=== PATIENT | female | born 1985 | race Caucasian/White ===

== ENCOUNTER 2020-01-09 12:53 | Emergency (ER) | payer SELFPAY ==
[2020-01-09 15:18] VITALS: BP 109/79; PULSE 75; RESP 20; TEMP 37.3; O2SAT 100; BMI 34.0
--- NOTE | 2020-01-09 15:20 | ED_ITS ---
HPI - General Adult General Chief complaint: Abdominal Pain Stated complaint: fever cough abd pain Time Seen by Provider: 01/09/20 15:15 Source: patient Mode of arrival: ambulatory Limitations: no limitations History of Present Illness HPI narrative: 34 years old female with chief complaint of abdominal pain. She states that a few days ago he started to have URI symptoms malaise, weakness , fever. She denies any fever, chills, diarrhea Onset (ago): day(s) (3) Location: abdomen Radiation: non-radiation Severity: moderate Pain Consistency: constant Relieving factors: none Exacerbating factors: none Related Data Previous Rx's Medication Instructions Recorded naproxen [Naprosyn] 500 mg PO BID #10 tab 01/09/20 Allergies Allergy/AdvReac Type Severity Reaction Status Date / Time acetaminophen [From PERCOCET] Allergy Unknown RASH Unverified 12/11/19 16:50 oxycodone [From PERCOCET] Allergy Unknown RASH Unverified 12/11/19 16:50 Review of Systems Review of Systems: Yes all other systems are reviewed and are negative Cardiovascular: Cardiovascular: Reports no additional cardiovascular complaints Respiratory: Respiratory: Reports no additional respiratory complaints and Reports cough Gastrointestinal: Gastrointestinal: Denies hematochezia and Denies change in bowel habits Neurologic: Reports system reviewed and no additional complaints, except as documented PMFSH Past Medical History Surgical History Hx of appendectomy Social History Social History Smoking Status: Never smoker Use of substances other than those prescribed or required for medical reasons: Yes Substance Use Type: Marijuana Substance Use Frequency: Daily Advance Directives: No Advance Directives Information Provided: Yes Physical Exam Vital Signs: Vital Signs: Vital Signs Temp Pulse Resp BP Pulse Ox 01/09/20 15:18 99.2 F 75 20 109/79 100 Body Mass Index 34.0 Const: Other: she appear well she is not toxic General: cooperative, healthy appearing, comfortable, no acute distress, well developed, alert, awake and Physically active HENMT: Head: Yes normal to inspection Eyes: General: appearance normal, both eyes and all related structures Neck: Neck: Yes normal visual inspection and Yes full ROM Chest: Chest palpation & inspection: normal inspection of the chest Resp: Effort & Inspection: normal respiratory effort Cardio: Jugular venous distension: no JVD Rate: regular rate GI: Inspection: Yes normal to inspection Percussion: Yes normal to percussion Auscultation: normal bowel sounds Skin: Rashes: no rashes Course Reevaluation(s) Reevaluation #1: AT THIS POINT SHE IS FEELING BETTER, THE WHITE COUNT IS NORMAL AT THE CHEMISTRIES NORMAL, SHE HAD HISTORY OF APPENDECTOMY. I DO NOT THINK A CT SCAN OF THE ABDOMEN AND PELVIS IS NECESSARY SHE IS RELATIVELY YOUNG AND WILL AVOID THE RADIATION, SOUND MORE LIKE A VIRAL ILLNESS STARTED WITH THE URI SYMPTOMS AND COUGH, WE WILL TEST FOR CORONAVIRUS WILL DISCHARGE HOME. PATIENT IS COMFORTABLE WITH THE PLAN.SHE WILL RETURN IF WORSE Time: 16:49 Medical Decision Making Lab Data Result diagrams: 01/09/20 15:42 01/09/20 15:42 Labs: Lab Results 01/09/20 01/09/20 01/09/20 Range/Units 15:42 15:42 15:42 WBC 5.3 (4.8-10.8) X10*3/uL RBC 4.49 (4.20-5.50) X10*6/uL Hgb 13.6 (12.0-16.0) g/dl Hct 41.2 (37-47) % MCV 91.8 (80-98) fL MCH 30.3 (27.0-33.0) pg MCHC 33.0 (31.0-35.0) g/dl RDW 12.6 (11.0-16.0) % Plt Count 331 (160-400) X10*3/uL MPV 8.6 L (9.4-12.3) fL Immature Gran % (Auto) 0.2 (0.0-0.4) % Neut % (Auto) 53.1 (45-73) % Lymph % (Auto) 31.2 (20-40) % [place] % (Auto) 11.7 H (2-11) % Eos % (Auto) 3.2 (0-4) % Baso % (Auto) 0.6 (0-2) % Lymph # (Auto) 1.7 (1.2-4.9) X10*3/uL [place] # (Auto) 0.6 (0.1-1.2) X10*3/uL Eos # (Auto) 0.2 (0.0-0.4) X10*3/uL Baso # (Auto) 0.0 (0.0-0.2) X10*3/uL Abs Immat Gran (auto) 0.01 (0.00-0.03) X10*3/uL Absolute Neuts (auto) 2.8 (2.0-8.3) X10*3/uL Absolute Nucleated RBC 0.000 (0.0-0.012) X10*3/uL Nucleated RBC % (auto) 0.0 (0.0-0.2) /100WBC Sodium 135 Cancelled (135-145) mmol/L Potassium 4.4 Cancelled (3.3-5.1) mmol/l Chloride 106 Cancelled (96-108) mmol/L Carbon Dioxide 25 Cancelled (22-29) mmol/L Anion Gap 8 L Cancelled (12-20) BUN 9 Cancelled (9-16) mg/dL Creatinine 0.77 Cancelled (0.5-1.4) mg/dL Estim Creat Clear Calc 101.5 Cancelled Estimated GFR > 60 Cancelled Random Glucose 77 Cancelled (60-115) mg/dL Calcium 8.8 Cancelled (8.4-10.2) mg/dL Total Bilirubin 0.3 Cancelled (0.0-1.0) mg/dL AST 26 Cancelled (5-31) U/L ALT 16 Cancelled (0-31) U/L Alkaline Phosphatase 50 Cancelled (39-117) U/L Total Protein 6.5 Cancelled (6.5-8.0) g/dL Albumin 3.8 Cancelled (3.5-5.0) g/dL Beta HCG, Quant < 2 mIU/mL Discharge Plan Discharge Clinical Impression: Viral illness Abdominal pain Qualifiers: Abdominal location: generalized Qualified Code(s): R10.84 - Generalized abdominal pain Patient Disposition: Home, Self-Care Instructions: Viral Syndrome (ED) Prescriptions: New naproxen [Naprosyn] 500 mg tablet 500 mg PO BID Qty: 10 RF: 0 Stand Alone Forms: Work/School Release Interventions: ED Discharge Assessment Last Done: 01/09/20 17:05 Discharge Date/Time: 01/09/20 17:12
--- NOTE | 2020-01-09 15:35 | PC.NURSE ---
pt alert and oriented, skin pwd, respirations even and unlabored, pt states that on Sunday, was having fever at home 102, not feeling right, on sun started with lower abd pain/n/v, abd soft but tender
[2020-01-09 15:49] LABS: MANUAL DIFF FLAG NO
[2020-01-09 15:52] LABS: Basophils Percent Auto 0.6 % (0-2); Eosinophils Absolute Auto 0.2 X10*3/uL (0.0-0.4); Eosinophils Percent Auto 3.2 % (0-4); Hematocrit 41.2 % (37-47); Hemoglobin 13.6 g/dl (12.0-16.0); Imm Gran Abs Auto 0.01 X10*3/uL (0.00-0.03); Imm Gran Pct Auto 0.2 % (0.0-0.4); Lymphocytes Absolute Auto 1.7 X10*3/uL (1.2-4.9); Lymphocytes Percent Auto 31.2 % (20-40); Mean Corpuscular Hemoglobin 30.3 pg (27.0-33.0); Mean Corpuscular Volume 91.8 fL (80-98); Mean Platelet Volume 8.6 fL (9.4-12.3); Monocytes Absolute Auto 0.6 X10*3/uL (0.1-1.2); Monocytes Percent Auto 11.7 % (2-11); Neutrophils Absolute Auto 2.8 X10*3/uL (2.0-8.3); Neutrophils Percent Auto 53.1 % (45-73); Platelet Count 331 X10*3/uL (160-400); Red Blood Count 4.49 X10*6/uL (4.20-5.50); Red Cell Distribution Width 12.6 % (11.0-16.0); White Blood Count 5.3 X10*3/uL (4.8-10.8)
[2020-01-09 16:19] LABS: HCG Quantitative < 2 mIU/mL
[2020-01-09 16:36] LABS: Alanine Aminotransferase 16 U/L (0-31); Albumin Level 3.8 g/dL (3.5-5.0); Alkaline Phosphatase 50 U/L (39-117); Anion Gap 8 (12-20); Aspartate Amino Transferase 26 U/L (5-31); Bilirubin Total 0.3 mg/dL (0.0-1.0); Blood Urea Nitrogen 9 mg/dL (9-16); Calcium 8.8 mg/dL (8.4-10.2); Carbon Dioxide 25 mmol/L (22-29); Chloride 106 mmol/L (96-108); Creatinine Clr Calc Pharmacy 101.5; Estimated Glomerular Filt Rate > 60; Glucose Random 77 mg/dL (60-115); Potassium 4.4 mmol/l (3.3-5.1); Sodium 135 mmol/L (135-145); Total Protein 6.5 g/dL (6.5-8.0)
[2020-01-09] MEDS: Ketorolac Tromethamine 15 MG/ML VIAL IVPUSH (16:51)
== END 2020-01-09 17:12 | disposition home or self-care (01) ==
PROVIDERS: Emergency Provider Emergency Medicine
DX: B34.9 Viral infection, unspecified (principal); R50.9 Fever, unspecified; Z20.828 Contact with and (suspected) exposure to other viral communicable diseases
CPT/HCPCS: 36415; 80053; 84702; 85025; 87635; 96374; 99284; J1885

== ENCOUNTER 2020-02-01 16:10 | Emergency (ER) | payer SELFPAY ==
[2020-02-01 16:46] VITALS: BP 125/83; PULSE 79; RESP 16; TEMP 37; O2SAT 99; BMI 34.0
--- NOTE | 2020-02-01 16:47 | ED_ITS ---
HPI - General Adult General Chief complaint: General Medical Stated complaint: covid test (symptoms) Time Seen by Provider: 02/01/20 16:47 Source: patient Mode of arrival: ambulatory Limitations: no limitations History of Present Illness HPI narrative: States was at a family gathering 7 days ago and was called yesterday told that 1 of the attendees had COVID-19 and she has had symptoms of congestion since yesterday and concern for COVID-19 here to get COVID-19 test. She also reports some congestion with sore throat. No fever, chest pain or shortness of breath. Onset (ago): day(s) Treatments prior to arrival: none Related Data Previous Rx's Medication Instructions Recorded naproxen [Naprosyn] 500 mg PO BID #10 tab 01/09/20 Allergies Allergy/AdvReac Type Severity Reaction Status Date / Time acetaminophen [From PERCOCET] Allergy Unknown RASH Unverified 12/11/19 16:50 oxycodone [From PERCOCET] Allergy Unknown RASH Unverified 12/11/19 16:50 Review of Systems Review of Systems: Constitutional: No Weight loss, No Fever, No Chills, No Night Sweats, No Fatigue, No Malaise ENT/Mouth: No Hearing loss, No Ear Pain, + Nasal Congestion, No Sinus Pain, No Hoarseness, + sore throat, No Rhinorrhea, No Swallowing Difficulty Eyes: No Eye Pain, No Swelling, No Redness, No Foreign Body, No Discharge, No Vision Changes Cardiovascular: No Chest Pain, No SOB, No Dyspnea on Exertion, No Orthopnea, No Edema, No Palpitations Respiratory: No Cough, No Sputum, No Wheezing, Gastrointestinal: No Nausea, No Vomiting, No Diarrhea, No Constipation, No abdominal Pain, No Hematochezia, No Melena Genitourinary: no irregular bleeding, No Dysuria, No Urinary Frequency, No Hematuria, No Urinary Incontinence, No Urgency, No Flank Pain, No Urinary Flow Changes, No Hesitancy Musculoskeletal: No joint pain, No Myalgias, No Joint Swelling Skin: No Skin Lesions, No rash Neuro: No Weakness, No Numbness, No Paresthesias, No Loss of Consciousness, No Dizziness, No Headache Psych: No Anxiety/Panic, No Depression Heme/Lymph: No Bruising, No Bleeding,No Lymphadenopathy Endocrine: No Polyuria, No Polydipsia, No Temperature Intolerance Yes all other systems are reviewed and are negative [facility] Past Medical History Attestation statement: The following information was validated with the patient. Surgical History Hx of appendectomy Social History Social History Smoking Status: Never smoker Smoked in Last 30 Days: No Use of substances other than those prescribed or required for medical reasons: No Substance Use Type: Marijuana Advance Directives: No Advance Directives Information Provided: Yes Physical Exam Vital Signs: Vital Signs: Last Vital Signs Temp 98.6 F 02/01/20 16:46 Pulse 79 02/01/20 16:46 Resp 16 02/01/20 16:46 BP 125/83 02/01/20 16:46 Pulse Ox 99 02/01/20 16:46 Body Mass Index 34.0 Reviewed Const: General: cooperative and healthy appearing; No acute distress or intoxicated appearing Nutritional Appearance: average body habitus Orientation/consciousness: patient oriented x3 HENMT: Head: Yes normal to inspection Ears: hearing grossly normal bilaterally Eyes: General: appearance normal, both eyes and all related structures Visual Farrar: normal visual farrar by confrontation Neck: Neck: Yes normal visual inspection and No tender Thyroid: Thyroid normal Chest: Chest palpation & inspection: normal inspection of the chest Resp: Effort & Inspection: normal respiratory effort Cardio: Jugular venous distension: no JVD Skin: General skin exam: no rashes or lesions noted Neuro: General: patient oriented x3 Extrem: General: Yes normal to inspection Medical Decision Making MDM Narrative Medical decision making narrative: Will do a rapid strep as well as COVID-19 will discharge home with couple caution return follow-up instructions. Discharge Plan Discharge Clinical Impression: Upper respiratory infection Qualifiers: URI type: unspecified viral URI Qualified Code(s): J06.9 - Acute upper respiratory infection, unspecified Patient Disposition: Home, Self-Care Instructions: Upper Respiratory Infection (ED) Additional Instructions: Based on your symptoms and history we have sent a COVID-19. Although your RESULT IS PENDING at this time. RESULTS should return within 72 hours. At this time you will be contacted with either NEGATIVE OR POSITIVE results. -Please wait until we contact you for your results. At this time you will be okay for discharge. Please plan for self quarantine for up to 14 days. Do not expose yourself to others. You may not go to work. If t esting does come back negative you may return to activities as long as you are no longer having any symptoms for at least 3 days. Please continue to follow cold instructions and wash your hands frequently. You may take Tylenol as directed on the bottle for pain or fever. Patient seen in the emergency department on 09/19/2019 and should be excused from work until negative test results AND until 72 hours without any symptoms AND at least 10 days have passed since symptoms first appeared or since last exposure to COVID-19 positive patient CDC Guidelines for home isolation: - Stay away from others - WEAR A MASK if you are sick AND STAY HOME - Cover your mouth and nose with a tissue when you cough or sneeze. Dispose of tissues in a lined trash can and wash your hands immediately with soap and water for at least 20 seconds. If soap and water are not available, clean hands with alcohol-based hand nurse practitioner manager that contains at least 60% alcohol. - Clean your hands often with soap and water for at least 20 seconds - Avoid touching your eyes, nose and mouth with unwashed hands - Do not share dishes, drinking glasses, cups, eating utensils, towels, or bedding with other people in your home. After using these items, wash them thoroughly with soap and water or put in the wood grainer. - Clean high-touch surfaces in your isolation area ( sick room and bathroom) every day; let a caregiver clean and disinfect high-touch surfaces in other areas of the home. Clean the area or item with soap and water or another detergent if it is dirty. Then, use a household disinfectant. - Limit contact with pets and animals: If you must care for a pet, wash your hands before and after interacting with them Prescriptions: No Action naproxen [Naprosyn] 500 mg tablet 500 mg PO BID Qty: 10 RF: 0 Referrals: Physician,Unknown [Primary Care Provider] - 1 week (phone visit ) Stand Alone Forms: Work/School Release
== END 2020-02-01 17:29 | disposition home or self-care (01) ==
PROVIDERS: Emergency Provider Emergency Medicine
DX: J06.9 Acute upper respiratory infection, unspecified (principal); R09.81 Nasal congestion; Z20.828 Contact with and (suspected) exposure to other viral communicable diseases
CPT/HCPCS: 87071; 87147; 87880; 99283; 99284; U0003

== ENCOUNTER 2020-04-07 10:46 | Outpatient (REF) | payer OTHER, SELFPAY | END 2020-04-07 10:47 | disposition home or self-care (01) | LOC: HO.LAB 10:46 | PROVIDERS: Visit Provider Internal Medicine | DX: Z20.822 Contact with and (suspected) exposure to COVID-19 (principal) | CPT/HCPCS: 36415; C9803; U0003 ==

== ENCOUNTER 2020-05-11 09:27 | Outpatient (REF) | payer MEDICAID, SELFPAY | END 2020-05-11 09:28 | disposition home or self-care (01) | LOC: HO.LAB 09:27 | PROVIDERS: Visit Provider Internal Medicine | DX: Z20.822 Contact with and (suspected) exposure to COVID-19 (principal) | CPT/HCPCS: 36415; C9803; U0003; U0005 ==

== ENCOUNTER 2020-05-18 18:34 | Emergency (ER) | payer MEDICAID, SELFPAY | END 2020-05-18 19:30 | disposition left against medical advice (07) | PROVIDERS: Emergency Provider Emergency Medicine | DX: U07.1 COVID-19 (principal); F12.90 Cannabis use, unspecified, uncomplicated ==

== ENCOUNTER 2020-05-20 08:15 | Emergency (ER) | payer MEDICAID, SELFPAY ==
--- NOTE | ~2020-05-20 | CT_ITS ---
EXAMINATION: CT ABDOMEN AND PELVIS WITH CONTRAST CLINICAL INFORMATION: Vomiting, elevated LFT and lipase. COMPARISON: CT abdomen and pelvis with IV contrast 07/23/2018 TECHNIQUE: Multidetector volumetric images were obtained from the superior aspect of the liver through the pubic symphysis following administration 85 mL of Omnipaque 350 intravenous contrast. Sagittal and coronal reformatted images were obtained on the technologist's workstation. Oral contrast: No This CT examination was performed using dose optimization techniques as appropriate, variously including the following: *Automated exposure control *Adjustment of mA and/or kV according to patient size (this includes techniques or standardized protocols for targeted exams where dose is matched to indication/reason for exam; i.e. extremities or head) *Use of iterative reconstruction technique DLP: 706 mGy-cm FINDINGS: LUNG BASES: The visualized lung bases are unremarkable. LIVER, GALLBLADDER, AND BILIARY TREE: Liver is normal in size and smooth in contour. Again, there is some fatty infiltration subcapsular anterior left lobe adjacent to the intersegmental fissure. There is no hepatic parenchymal lesion or intrahepatic ductal dilatation. The gallbladder is unremarkable with no evidence of radiopaque gallstones, gallbladder wall thickening, or obvious pericholecystic inflammatory changes. PANCREAS: Normal in size and contour, similar to prior study. No pancreatic ductal dilatation. No peripancreatic inflammatory changes. No retroperitoneal effusion. SPLEEN: Unremarkable. ADRENAL GLANDS: Unremarkable. KIDNEYS AND URETERS: The kidneys are normal in size, shape, and attenuation. No hydronephrosis, hydroureter, or calculi seen. No perinephric stranding. BLADDER: Unremarkable. GASTROINTESTINAL TRACT: There is borderline sliding hiatal hernia. There is no bowel obstruction or focal inflammatory changes in the bowel or mesentery. Surgical clips right lower quadrant are present and the appendix is not visualized, likely prior appendectomy. The terminal ileum and cecum are unremarkable. There is no ascites or fluid collection. ABDOMINAL WALL: Borderline fat-containing umbilical hernia, stable LYMPH NODES: No lymphadenopathy. VASCULAR: Unremarkable. PELVIC VISCERA: Unremarkable. OSSEOUS STRUCTURES: Unremarkable. CT/CT abdomen pelvis w con IMPRESSION: 1. No inflammatory changes in abdomen or pelvis. No bowel obstruction. 2. No cholelithiasis or ductal dilatation. Unremarkable pancreas. 3. No hydronephrosis, calculi, or perinephric stranding.
[2020-05-20 08:27] VITALS: BP 152/106; PULSE 82; RESP 16; TEMP 37.4; O2SAT 100; BMI 32.5
--- NOTE | 2020-05-20 08:34 | ED.NAVMDI ---
HPI - Nausea/Vomiting/Diarrhea General Chief complaint: Nausea/Vomiting/Diarrhea Stated complaint: pos covid last week,vomiting Time Seen by Provider: 05/20/20 08:23 Source: patient Mode of arrival: ambulatory Limitations: no limitations History of Present Illness HPI Narrative: 34 yo female dx with COVID on 05/11 since Sunday non stop emesis and nausea, feels weak cannot keep anything down MD elicited complaint: nausea and vomiting Pertinent past history: other (uses THC daily ) Onset (ago): day(s) (6 days) Description of vomiting: watery Associated nausea: Yes Associated abdominal pain: No Pain consistency: intermittent Severity: severe Exacerbating factors: eating Relieving factors: none Context: marijuana use Associated symptoms: loss of appetite, malaise, nausea/vomiting and weakness Related Data Previous Rx's Medication Instructions Recorded naproxen [Naprosyn] 500 mg PO BID #10 tab 01/09/20 amoxicillin-pot clavulanate 1 tab PO BID 10 Days #20 tab 02/05/20 [Augmentin] lorazepam [Ativan] 1 mg PO BEDTIME PRN #5 tab 05/20/20 ondansetron 4 mg PO Q8H PRN #20 tab 05/20/20 promethazine 25 mg IN Q6H PRN #12 ea 05/20/20 Allergies Allergy/AdvReac Type Severity Reaction Status Date / Time acetaminophen [From PERCOCET] Allergy Unknown RASH Unverified 12/11/19 16:50 oxycodone [From PERCOCET] Allergy Unknown RASH Unverified 12/11/19 16:50 Review of Systems Review of Systems: Constitutional : No Weight loss, No Fever, No Chills ENT/Mouth : No sore throat, No Rhinorrhea Eyes: No Swelling, No Redness Cardiovascular : No Chest Pain, No SOB, NoEdema Respiratory : No Cough, No Sputum, No Wheezing Gastrointestinal : Positive Nausea, Positive Vomiting, no Diarrhea, no abdominal Pain, No Hematochezia, No Melena Genitourinary : No Dysuria, No Urinary Frequency, No Hematuria, No Urgency Musculoskeletal : No joint pain, No Myalgias, No Joint Swelling Skin : No Skin Lesions, No rash Neuro : pos Weakness, No Numbness, No Dizziness, No Headache Psych : No Anxiety/Panic, No Depression Heme/Lymph: No Bruising, No Lymphadenopathy Endocrine : No Polyuria, No Polydipsia All other systems reviewed and are negative. Gastrointestinal: Gastrointestinal: Reports nausea PMFSH Past Medical History Attestation statement: The following information was validated with the patient. Medical History COVID-19 Surgical History Hx of appendectomy Social History Social History Alcohol intake: never Smoking Status: Never smoker Use of substances other than those prescribed or required for medical reasons: Yes Substance Use Type: Marijuana Substance Use Frequency: Daily Advance Directives: No Advance Directives Information Provided: No Physical Exam Vital Signs: Vital Signs: Last Vital Signs Temp 99.4 F 05/20/20 09:02 Pulse 68 05/20/20 14:55 Resp 16 05/20/20 14:55 BP 118/76 05/20/20 14:55 Pulse Ox 98 05/20/20 14:55 Body Mass Index 32.5 Appearance: Alert. Oriented X3. No acute distress. positive vomiting Eyes: Pupils equal, round and reactive to light. ENT: Pharynx dry MM Neck: Normal inspection. Neck supple. CVS: Normal heart rate and rhythm. Pulses normal. Respiratory: No respiratory distress. Breath sounds normal. Abdomen: Soft and nontender. Skin: Skin warm and dry. Normal skin color. Normal skin turgor. Extremities: No lower extremity edema. No calf ttp Neuro: Oriented X 3. No motor deficit. No sensory deficit. Course Course Course Narrative: CT scan for elevated LFTs and lipase failed PO challenge, IM haldol ordered does smoke daily THC has been asleep since haldol. able to tolerate PO post haldol she is not dehydrated, no acute findings on CT scan will send home with zofran and phenergan we discussed stopping THC MDM - Nausea/Vomiting/Diarrhea MDM Narrative Medical decision making narrative: 34 yo female here with vomiting/nausea since Sunday dx with COVID on 05/11 but did not have nausea then - she has no abdominal pain, denies at this time will obtain labs, hydrate gently, anti emetics, dispo per resulst and findings does smoke THC daily Lab Data Result diagrams: 05/20/20 08:40 05/20/20 08:40 Labs: Lab Results 05/20/20 05/20/20 05/20/20 Range/Units 08:40 08:40 08:40 WBC 5.6 (4.8-10.8) X10*3/uL RBC 5.24 (4.20-5.50) X10*6/uL Hgb 15.5 (12.0-16.0) g/dl Hct 45.5 (37-47) % MCV 86.8 (80-98) fL MCH 29.6 (27.0-33.0) pg MCHC 34.1 (31.0-35.0) g/dl RDW 12.1 (11.0-16.0) % Plt Count 463 H D (160-400) X10*3/uL MPV 8.6 L (9.4-12.3) fL Immature Gran % (Auto) 0.2 (0.0-0.4) % Neut % (Auto) 59.3 (45-73) % Lymph % (Auto) 25.0 (20-40) % [place] % (Auto) 15.3 H (2-11) % Eos % (Auto) 0.0 (0-4) % Baso % (Auto) 0.2 (0-2) % Lymph # (Auto) 1.4 (1.2-4.9) X10*3/uL [place] # (Auto) 0.9 (0.1-1.2) X10*3/uL Eos # (Auto) 0.0 (0.0-0.4) X10*3/uL Baso # (Auto) 0.0 (0.0-0.2) X10*3/uL Abs Immat Gran (auto) 0.01 (0.00-0.03) X10*3/uL Absolute Neuts (auto) 3.3 (2.0-8.3) X10*3/uL Absolute Nucleated RBC 0.000 (0.0-0.012) X10*3/uL Nucleated RBC % (auto) 0.0 (0.0-0.2) /100WBC Hold Blue Top SEE NOTE Sodium 142 (135-145) mmol/L Potassium 3.5 (3.3-5.1) mmol/L Chloride 102 (96-108) mmol/L Carbon Dioxide 27 (22-29) mmol/L Anion Gap 17 (12-20) BUN 14 D (9-16) mg/dL Creatinine 0.97 (0.5-1.4) mg/dL Estim Creat Clear Calc 78.7 Estimated GFR > 60 Random Glucose 139 H D (60-115) mg/dL Calcium 9.5 D (8.4-10.2) mg/dL Magnesium 2.6 (1.6-2.6) mg/dL Total Bilirubin 0.9 (0.0-1.0) mg/dL Direct Bilirubin 0.4 (0.0-0.5) mg/dL AST 74 H (5-31) U/L ALT 89 H (0-31) U/L Alkaline Phosphatase 51 (39-117) U/L Total Protein 7.8 (6.5-8.0) g/dL Albumin 4.6 D (3.5-5.0) g/dL Lipase 99 H (8-78) U/L Beta HCG, Quant < 2 mIU/mL Urine Color Urine Appearance Urine pH (5.0-8.0) Ur Specific [place] (1.005-1.025) Urine Protein (NEG-TRACE) MG/DL Urine Glucose (UA) (NEG) MG/DL Urine Ketones (NEG) MG/DL Urine Blood (NEG) Urine Nitrite (NEG) Ur Leukocyte Esterase (NEG) Urine Opiates Screen (Not Detect) Ur Barbiturates Screen (Not Detect) Ur Phencyclidine Scrn (Not Detect) Ur Amphetamines Screen (Not Detect) U Benzodiazepines Scrn (Not Detect) Urine Cocaine Screen (Not Detect) U Marijuana (THC) Screen (Not Detect) 05/20/20 05/20/20 Range/Units 11:42 11:42 WBC (4.8-10.8) X10*3/uL RBC (4.20-5.50) X10*6/uL Hgb (12.0-16.0) g/dl Hct (37-47) % MCV (80-98) fL MCH (27.0-33.0) pg MCHC (31.0-35.0) g/dl RDW (11.0-16.0) % Plt Count (160-400) X10*3/uL MPV (9.4-12.3) fL Immature Gran % (Auto) (0.0-0.4) % Neut % (Auto) (45-73) % Lymph % (Auto) (20-40) % [place] % (Auto) (2-11) % Eos % (Auto) (0-4) % Baso % (Auto) (0-2) % Lymph # (Auto) (1.2-4.9) X10*3/uL [place] # (Auto) (0.1-1.2) X10*3/uL Eos # (Auto) (0.0-0.4) X10*3/uL Baso # (Auto) (0.0-0.2) X10*3/uL Abs Immat Gran (auto) (0.00-0.03) X10*3/uL Absolute Neuts (auto) (2.0-8.3) X10*3/uL Absolute Nucleated RBC (0.0-0.012) X10*3/uL Nucleated RBC % (auto) (0.0-0.2) /100WBC Hold Blue Top Sodium (135-145) mmol/L Potassium (3.3-5.1) mmol/L Chloride (96-108) mmol/L Carbon Dioxide (22-29) mmol/L Anion Gap (12-20) BUN (9-16) mg/dL Creatinine (0.5-1.4) mg/dL Estim Creat Clear Calc Estimated GFR Random Glucose (60-115) mg/dL Calcium (8.4-10.2) mg/dL Magnesium (1.6-2.6) mg/dL Total Bilirubin (0.0-1.0) mg/dL Direct Bilirubin (0.0-0.5) mg/dL AST (5-31) U/L ALT (0-31) U/L Alkaline Phosphatase (39-117) U/L Total Protein (6.5-8.0) g/dL Albumin (3.5-5.0) g/dL Lipase (8-78) U/L Beta HCG, Quant mIU/mL Urine Color YELLOW Urine Appearance CLEAR Urine pH 7.5 (5.0-8.0) Ur Specific [place] <= 1.005 (1.005-1.025) Urine Protein NEG (NEG-TRACE) MG/DL Urine Glucose (UA) NEG (NEG) MG/DL Urine Ketones NEG (NEG) MG/DL Urine Blood NEG (NEG) Urine Nitrite NEG (NEG) Ur Leukocyte Esterase NEG (NEG) Urine Opiates Screen Not Detected (Not Detect) Ur Barbiturates Screen Not Detected (Not Detect) Ur Phencyclidine Scrn Not Detected (Not Detect) Ur Amphetamines Screen Not Detected (Not Detect) U Benzodiazepines Scrn Not Detected (Not Detect) Urine Cocaine Screen Not Detected (Not Detect) U Marijuana (THC) Screen POSITIVE H (Not Detect) Discharge Plan Discharge Clinical Impression: Vomiting Qualifiers: Vomiting type: unspecified Vomiting Intractability: non-intractable Nausea presence: with nausea Qualified Code(s): R11.2 - Nausea with vomiting, unspecified Patient Disposition: Home, Self-Care Instructions: Acute Nausea and Vomiting (ED) Additional Instructions: return to ED for any worsening symptoms or concerns stop smoking marijuana you had slight elevation in your liver function tests likely due to COVID and vomiting, repeat tests in 1 week Prescriptions: New promethazine 25 mg suppository 25 mg IN Q6H PRN (Reason: nausea and vomiting) Qty: 12 RF: 0 ondansetron 4 mg tablet,disintegrating 4 mg PO Q8H PRN (Reason: nausea and vomiting) Qty: 20 RF: 0 lorazepam [Ativan] 1 mg tablet 1 mg PO BEDTIME PRN (Reason: sleep) Qty: 5 RF: 0 No Action naproxen [Naprosyn] 500 mg tablet 500 mg PO BID Qty: 10 RF: 0 amoxicillin-pot clavulanate [Augmentin] 875-125 mg tablet 1 tab PO BID 10 Days Qty: 20 RF: 0 Stand Alone Forms: Work/School Release
[2020-05-20 08:46] LABS: MANUAL DIFF FLAG NO
[2020-05-20] MEDS: diphenhydrAMINE HCL 50 MG/ML VIAL 25 MG IVPUSH (08:47)
[2020-05-20] MEDS: Metoclopramide HCl 10 MG/2 ML VIAL 5 MG IVPUSH (08:47)
[2020-05-20] MEDS: 0.9 % Sodium Chloride 1,000 ML 999 ML IVCONT (08:47)
[2020-05-20 08:48] LABS: Basophils Percent Auto 0.2 % (0-2); Hematocrit 45.5 % (37-47); Hemoglobin 15.5 g/dl (12.0-16.0); Imm Gran Abs Auto 0.01 X10*3/uL (0.00-0.03); Imm Gran Pct Auto 0.2 % (0.0-0.4); Lymphocytes Absolute Auto 1.4 X10*3/uL (1.2-4.9); Mean Corpuscular HGB Conc 34.1 g/dl (31.0-35.0); Mean Corpuscular Hemoglobin 29.6 pg (27.0-33.0); Mean Corpuscular Volume 86.8 fL (80-98); Mean Platelet Volume 8.6 fL (9.4-12.3); Monocytes Absolute Auto 0.9 X10*3/uL (0.1-1.2); Monocytes Percent Auto 15.3 % (2-11); Neutrophils Absolute Auto 3.3 X10*3/uL (2.0-8.3); Neutrophils Percent Auto 59.3 % (45-73); Platelet Count 463 X10*3/uL (160-400); Red Blood Count 5.24 X10*6/uL (4.20-5.50); Red Cell Distribution Width 12.1 % (11.0-16.0); White Blood Count 5.6 X10*3/uL (4.8-10.8)
[2020-05-20 09:02] VITALS: BP 152/106; PULSE 82; RESP 16; TEMP 37.4; O2SAT 100
--- NOTE | 2020-05-20 09:06 | PC.NURSE ---
pt in for nausea and vomiting since Sunday. Md to bedside, IV established. Pt has been medicated for nausea and is resting quietly. She did vomit on arrival several times.
[2020-05-20 09:13] LABS: Alanine Aminotransferase 89 U/L (0-31); Albumin Level 4.6 g/dL (3.5-5.0); Alkaline Phosphatase 51 U/L (39-117); Anion Gap 17 (12-20); Aspartate Amino Transferase 74 U/L (5-31); Bilirubin Direct 0.4 mg/dL (0.0-0.5); Bilirubin Total 0.9 mg/dL (0.0-1.0); Blood Urea Nitrogen 14 mg/dL (9-16); Calcium 9.5 mg/dL (8.4-10.2); Carbon Dioxide 27 mmol/L (22-29); Chloride 102 mmol/L (96-108); Creatinine Clr Calc Pharmacy 78.7; Estimated Glomerular Filt Rate > 60; Glucose Random 139 mg/dL (60-115); Magnesium 2.6 mg/dL (1.6-2.6); Potassium 3.5 mmol/L (3.3-5.1); Sodium 142 mmol/L (135-145); Total Protein 7.8 g/dL (6.5-8.0)
[2020-05-20 09:20] LABS: HCG Quantitative < 2 mIU/mL
[2020-05-20 09:29] LABS: Lipase 99 U/L (8-78)
[2020-05-20] MEDS: iohexoL 350 MG/ML 100 ML INFUS..BTL IV (10:02)
[2020-05-20 10:35] VITALS: BP 143/86; PULSE 83; RESP 16; O2SAT 98
[2020-05-20 12:05] LABS: Glucose Urine UA NEG (NEG); Leukocyte Esterase Urine NEG (NEG); Nitrite Urine NEG (NEG); PH 7.5 (5.0-8.0); Specific Gravity - Urine <= 1.005 (1.005-1.025); Urine Blood NEG (NEG); Urine Ketones NEG (NEG); Urine Protein NEG (NEG-TRACE)
[2020-05-20 12:07] LABS: Appearance Urine CLEAR; Color Urine YELLOW
[2020-05-20 12:25] LABS: Amphetamine Screen Urine Not Detected (Not Detect); Barbiturates, Urine Not Detected (Not Detect); Benzodiazepines Screen Urine Not Detected (Not Detect); Cannabinoid Screen Urine POSITIVE (Not Detect); Cocaine Screen Urine Not Detected (Not Detect); Opiate Screen Urine Not Detected (Not Detect); Phencyclidine Screen Urine Not Detected (Not Detect)
[2020-05-20] MEDS: Haloperidol Lactate 5 MG/ML VIAL IM (12:26)
[2020-05-20 12:28] VITALS: BP 157/99; PULSE 71; RESP 16; O2SAT 100
[2020-05-20 14:55] VITALS: BP 118/76; PULSE 68; RESP 16; O2SAT 98
--- NOTE | 2020-05-20 14:57 | PC.NURSE ---
pt semi prone on right side. Breathing improved with pt in this position. He states breathing is easier and oxygen saturations slightly improved to 93%
--- NOTE | 2020-05-20 15:01 | PC.NURSE ---
pt awake and tolerating sips of rashid gary. She states nausea is controlled at this time but she feels sleepy and foggy .
== END 2020-05-20 16:27 | disposition home or self-care (01) ==
PROVIDERS: Emergency Provider Emergency Medicine
DX: R11.2 Nausea with vomiting, unspecified (principal); R79.89 Other specified abnormal findings of blood chemistry; F12.90 Cannabis use, unspecified, uncomplicated; Z86.16 Personal history of COVID-19; Z79.899 Other long term (current) drug therapy
CPT/HCPCS: 36415; 74177; 80048; 80076; 80307; 81003; 83690; 83735; 84702; 85025; 96361; 96372; 96374; 96375; 99284; J1200; J2765; Q9967

== ENCOUNTER → 2021-03-04 08:35 | Outpatient (BNVA) | payer MEDICAID, SELFPAY | PROVIDERS: PCP Internal Medicine; Visit Provider Advanced Practice Midwife | DX: O21.9 Vomiting of pregnancy, unspecified (principal); N92.6 Irregular menstruation, unspecified; Z3A.00 Weeks of gestation of pregnancy not specified | CPT/HCPCS: 99202 ==

== ENCOUNTER 2021-03-05 09:50 | Inpatient (IN) | payer MEDICAID, SELFPAY ==
--- NOTE | ~2021-03-05 | US_ITS ---
EXAMINATION: US OBSTETRICAL ULTRASOUND CLINICAL INFORMATION: Bleeding, LMP 12/19/2020. COMPARISON: None. LMP: 12/19/2020. Gestational age by maternal dates is 09/25/2021. Estimated date of delivery by maternal dates is . TECHNIQUE: Multiple 2-D grayscale and Doppler ultrasound images of the pelvis were obtained. FINDINGS: There is a single intrauterine gestational sac with visible yolk sac, embryo/fetus, and cardiac activity. A small crescentic subchorionic hemorrhage is seen measuring approximately 3.1 x 0.7 x 0.8 cm. Color Doppler showed no abnormal vascular flow. HR: 176 beats per minute. CRL (crown rump length): 2.56 cm (10 weeks, 4 days +/- 4 days). CASEY (estimated date of delivery): 09/25/2021 +/- 4 days. MATERNAL ADNEXA: The right maternal ovary measures 3.3 x 1.9 x 2.0 cm. The left maternal ovary measures 2.2 x 1.4 x 1.0 cm. There is no significant maternal adnexal mass. No maternal pelvic ascites. US/US OB <= 14 weeks fetus IMPRESSION: 1. Single intrauterine gestation with ultrasound gestational age of 10 weeks, 4 days. 2. Small subchorionic hemorrhage. This could be monitored for change with a repeat pelvic ultrasound in 2-3 weeks or as clinically indicated.
[2021-03-05 10:03] VITALS: BP 161/108; PULSE 100; RESP 16; TEMP 36.9; O2SAT 100; BMI 33.4
--- NOTE | 2021-03-05 10:50 | ED.NAVMDI ---
HPI - Nausea/Vomiting/Diarrhea General Chief complaint: Nausea/Vomiting/Diarrhea Stated complaint: Vomiting() Time Seen by Provider: 03/05/21 10:18 Source: patient and old records reviewed Mode of arrival: ambulatory Limitations: no limitations History of Present Illness MD elicited complaint: nausea and vomiting Pertinent past history: other ( LMP 12/19/[address] [facility] seen in our OB clinic yesterday ) Onset (ago): day(s) (3 but has been on and off for 3 weeks ) Description of vomiting: food contents and watery Associated nausea: Yes Associated abdominal pain: No Pain consistency: intermittent Severity: moderate Exacerbating factors: eating Relieving factors: none Context: marijuana use and other (2.5 months based off of dates) Associated symptoms: loss of appetite, malaise and nausea/vomiting Related Data Previous Rx's Medication Instructions Recorded PNV 153-FA 400 mcg-om3 35 mg-dha 1 tab PO DAILY #30 tab 03/04/21 25 mg-epa 5 mg-fish oil chew tablet ( Gummies) doxylamine succinate 25 mg tablet 25 mg PO BEDTIME PRN #30 tab 03/04/21 (Unisom (doxylamine)) pyridoxine (vitamin B6) 25 mg 25 mg PO TID PRN #90 tab 03/04/21 tablet (Vitamin B-6) ondansetron 4 mg disintegrating 4 mg PO Q8H PRN #20 tab 03/05/21 tablet Allergies Allergy/AdvReac Type Severity Reaction Status Date / Time acetaminophen [From PERCOCET] Allergy Unknown RASH Verified 03/04/21 08:46 oxycodone [From PERCOCET] Allergy Unknown RASH Verified 03/04/21 08:46 Review of Systems Review of Systems: Constitutional : No Weight loss, No Fever, No Chills ENT/Mouth : No sore throat, No Rhinorrhea Eyes: No Swelling, No Redness Cardiovascular : No Chest Pain, No SOB, NoEdema Respiratory : No Cough, No Sputum, No Wheezing Gastrointestinal : Positive Nausea, Positive Vomiting, no Diarrhea, no abdominal Pain, No Hematochezia, No Melena Genitourinary : No Dysuria, No Urinary Frequency, No Hematuria, No Urgency , no vag bleeding Musculoskeletal : No joint pain, No Myalgias, No Joint Swelling Skin : No Skin Lesions, No rash Neuro : No Weakness, No Numbness, No Dizziness, No Headache Psych : No Anxiety/Panic, No Depression Heme/Lymph: No Bruising, No Lymphadenopathy Endocrine : No Polyuria, No Polydipsia All other systems reviewed and are negative. Gastrointestinal: Gastrointestinal: Reports nausea PMFSH Past Medical History Medical History COVID-19 Surgical History Hx of appendectomy Social History Social History Alcohol intake: never Substance Use Type: Marijuana Advance Directives: No Advance Directives Information Provided: No Patient : Yes Physical Exam Vital Signs: Vital Signs: Last Vital Signs Temp 99.0 F 03/05/21 14:39 Pulse 91 03/05/21 14:39 Resp 16 03/05/21 14:39 BP 148/83 H 03/05/21 14:39 Pulse Ox 100 03/05/21 14:39 BMI result Body Mass Index 33.4 Appearance: Alert. Oriented X3. Mild acute distress. Active vomiting Eyes: Pupils equal, round and reactive to light. ENT: Pharynx dry MM Neck: Normal inspection. Neck supple. CVS: Normal heart rate and rhythm. Pulses normal. Respiratory: No respiratory distress. Breath sounds normal. Abdomen: Soft and non-tender. Skin: Skin warm and dry. pale skin color. Normal skin turgor. Extremities: No lower extremity edema. No calf ttp Neuro: Oriented X 3. No motor deficit. No sensory deficit. Course Course Course Narrative: contaminated UA LFTs lower than baseline BP improved patient states she went to bathroom and saw some blood when voiding - US ordered 10 weeks BP slightly high - has had protein in urine in the past repeat compazine, signed out to [facility] [place] [facility] [place] challenge, patient asleep MDM - Nausea/Vomiting/Diarrhea MDM Narrative Medical decision making narrative: 35 yo female G1 LMP 12/[address] [facility] with US, our OB yesterday Rx medications for nausea reports persistent n/v no bleeding at this time will need labs, IVF x 2L, anti emetics - dispo per results and PO challenge Lab Data Result diagrams: 03/05/21 11:20 03/05/21 11:20 Labs: Lab Results 03/05/21 03/05/21 03/05/21 Range/Units 11:20 11:20 11:20 WBC 7.9 (4.8-10.8) X10*3/uL RBC 4.49 (4.20-5.50) X10*6/uL Hgb 13.6 (12.0-16.0) g/dl Hct 39.0 (37.0-47.0) % MCV 86.9 (80.0-98.0) fL MCH 30.3 (27.0-33.0) pg MCHC 34.9 (31.0-35.0) g/dl RDW 12.2 (11.0-16.0) % Plt Count 372 (160-400) X10*3/uL MPV 8.8 L (9.4-12.3) fL Immature Gran % (Auto) 0.3 (0.0-0.4) % Neut % (Auto) 82.8 H (45-73) % Lymph % (Auto) 11.7 L (20-40) % [place] % (Auto) 4.8 (2-11) % Eos % (Auto) 0.0 (0-4) % Baso % (Auto) 0.4 (0-2) % Lymph # (Auto) 0.9 L (1.2-4.9) X10*3/uL [place] # (Auto) 0.4 (0.1-1.2) X10*3/uL Eos # (Auto) 0.0 (0.0-0.4) X10*3/uL Baso # (Auto) 0.0 (0.0-0.2) X10*3/uL Abs Immat Gran (auto) 0.02 (0.00-0.03) X10*3/uL Absolute Neuts (auto) 6.6 (2.0-8.3) x10*3/uL Absolute Nucleated RBC 0.000 (0.0-0.012) X10*3/uL Nucleated RBC % (auto) 0.0 (0.0-0.2) /100WBC Sodium 136 (135-145) mmol/L Potassium 3.9 (3.3-5.1) mmol/L Chloride 105 (96-108) mmol/L Carbon Dioxide 18 L (22-29) mmol/L Anion Gap 17 (12-20) BUN 8 L (9-16) mg/dL Creatinine 0.75 (0.5-1.4) mg/dL Estim Creat Clear Calc 102.3 Estimated GFR > 60 Random Glucose 163 H (60-115) mg/dL Calcium 9.5 (8.4-10.2) mg/dL Magnesium 2.0 (1.6-2.6) mg/dL Total Bilirubin 0.5 (0.0-1.0) mg/dL Direct Bilirubin 0.2 (0.0-0.5) mg/dL AST 26 D (5-31) U/L ALT 32 H (0-31) U/L Alkaline Phosphatase 52 (39-117) U/L Total Protein 7.4 (6.5-8.0) g/dL Albumin 4.2 (3.5-5.0) g/dL Lipase 37 (8-78) U/L Beta HCG, Quant 618988 mIU/mL Urine Color Urine Appearance Urine pH (5.0-8.0) Ur Specific [place] (1.005-1.025) Urine Protein (NEG-TRACE) MG/DL Urine Glucose (UA) (NEG) MG/DL Urine Ketones (NEG) MG/DL Urine Blood (NEG) Urine Nitrite (NEG) Ur Leukocyte Esterase (NEG) Urine RBC (0) /HPF Urine WBC (0-4) /HPF Ur Squamous Epith Cells /LPF Urine Bacteria /LPF Urine Mucus /LPF COVID-19 (TEOFILO) Negative (Negative) COVID-19 Clin Com See Note 03/05/21 Range/Units 11:26 WBC (4.8-10.8) X10*3/uL RBC (4.20-5.50) X10*6/uL Hgb (12.0-16.0) g/dl Hct (37.0-47.0) % MCV (80.0-98.0) fL MCH (27.0-33.0) pg MCHC (31.0-35.0) g/dl RDW (11.0-16.0) % Plt Count (160-400) X10*3/uL MPV (9.4-12.3) fL Immature Gran % (Auto) (0.0-0.4) % Neut % (Auto) (45-73) % Lymph % (Auto) (20-40) % [place] % (Auto) (2-11) % Eos % (Auto) (0-4) % Baso % (Auto) (0-2) % Lymph # (Auto) (1.2-4.9) X10*3/uL [place] # (Auto) (0.1-1.2) X10*3/uL Eos # (Auto) (0.0-0.4) X10*3/uL Baso # (Auto) (0.0-0.2) X10*3/uL Abs Immat Gran (auto) (0.00-0.03) X10*3/uL Absolute Neuts (auto) (2.0-8.3) x10*3/uL Absolute Nucleated RBC (0.0-0.012) X10*3/uL Nucleated RBC % (auto) (0.0-0.2) /100WBC Sodium (135-145) mmol/L Potassium (3.3-5.1) mmol/L Chloride (96-108) mmol/L Carbon Dioxide (22-29) mmol/L Anion Gap (12-20) BUN (9-16) mg/dL Creatinine (0.5-1.4) mg/dL Estim Creat Clear Calc Estimated GFR Random Glucose (60-115) mg/dL Calcium (8.4-10.2) mg/dL Magnesium (1.6-2.6) mg/dL Total Bilirubin (0.0-1.0) mg/dL Direct Bilirubin (0.0-0.5) mg/dL AST (5-31) U/L ALT (0-31) U/L Alkaline Phosphatase (39-117) U/L Total Protein (6.5-8.0) g/dL Albumin (3.5-5.0) g/dL Lipase (8-78) U/L Beta HCG, Quant mIU/mL Urine Color YELLOW Urine Appearance CLOUDY Urine pH 6.0 (5.0-8.0) Ur Specific [place] >= 1.030 H (1.005-1.025) Urine Protein 2+ H (NEG-TRACE) MG/DL Urine Glucose (UA) 100 H (NEG) MG/DL Urine Ketones >=80 (NEG) MG/DL Urine Blood NEG (NEG) Urine Nitrite NEG (NEG) Ur Leukocyte Esterase TRACE H (NEG) Urine RBC 0 (0) /HPF Urine WBC 10-14 H (0-4) /HPF Ur Squamous Epith Cells 3+ /LPF Urine Bacteria TRACE /LPF Urine Mucus 2+ /LPF COVID-19 (TEOFILO) (Negative) COVID-19 Clin Com Discharge Plan Discharge Clinical Impression: Hyperemesis arising during Subchorionic hematoma Qualifiers: Fetus number: single or unspecified fetus Trimester: first trimester Qualified Code(s): O41.8X10 - Other specified disorders of amniotic fluid and membranes, first trimester, not applicable or unspecified Instructions: Hyperemesis Gravidarum (ED) Additional Instructions: return to ED for any worsening symptoms or concerns please fill your prescription Prescriptions: New ondansetron 4 mg tablet,disintegrating 4 mg PO Q8H PRN (Reason: nausea and vomiting) Qty: 20 RF: 0 No Action Unisom (doxylamine) 25 mg tablet 25 mg PO BEDTIME PRN (Reason: sleep) Qty: 30 RF: 3 pyridoxine (vitamin B6) [Vitamin B-6] 25 mg tablet 25 mg PO TID PRN (Reason: nausea and vomiting) Qty: 90 RF: 3 Gummies 400 mcg-35 mg- 25 mg-5 mg tablet,chewable 1 tab PO DAILY Qty: 30 RF: 11 Stand Alone Forms: Work/School Release
[2021-03-05] MEDS: 0.9 % Sodium Chloride 1,000 ML 999 ML IVCONT ×2 (11:27→13:10)
[2021-03-05] MEDS: diphenhydrAMINE HCL 50 MG/ML VIAL 25 MG IVPUSH (11:28)
[2021-03-05] MEDS: Metoclopramide HCl 10 MG/2 ML VIAL IVPUSH (11:28)
[2021-03-05 11:38] LABS: MANUAL DIFF FLAG NO
--- NOTE | 2021-03-05 11:39 | PC.NURSE ---
This RN working as float nurse. IV established and labs drawn. Hung 1st 1L NS and medicated with Reglan and Benedryl. Patient resting on stretcher with partner at bedside. Patient is alert and oriented. Ambulates to restroom with balanced gait. Skin PWD. Awaiting results.
[2021-03-05 11:42] LABS: Appearance Urine CLOUDY; Color Urine YELLOW; Glucose Urine UA 100 MG/DL (NEG); Leukocyte Esterase Urine TRACE (NEG); Nitrite Urine NEG (NEG); Specific Gravity - Urine >= 1.030 (1.005-1.025); UACC Culture Trigger YES; Urine Blood NEG (NEG); Urine Ketones >=80 MG/DL (NEG); Urine Protein 2+ MG/DL (NEG-TRACE)
[2021-03-05 11:42] LABS: Basophils Percent Auto 0.4 % (0-2); Hemoglobin 13.6 g/dl (12.0-16.0); Imm Gran Abs Auto 0.02 X10*3/uL (0.00-0.03); Imm Gran Pct Auto 0.3 % (0.0-0.4); Lymphocytes Absolute Auto 0.9 X10*3/uL (1.2-4.9); Lymphocytes Percent Auto 11.7 % (20-40); Mean Corpuscular HGB Conc 34.9 g/dl (31.0-35.0); Mean Corpuscular Hemoglobin 30.3 pg (27.0-33.0); Mean Corpuscular Volume 86.9 fL (80.0-98.0); Mean Platelet Volume 8.8 fL (9.4-12.3); Monocytes Absolute Auto 0.4 X10*3/uL (0.1-1.2); Monocytes Percent Auto 4.8 % (2-11); Neutrophils Absolute Auto 6.6 x10*3/uL (2.0-8.3); Neutrophils Percent Auto 82.8 % (45-73); Platelet Count 372 X10*3/uL (160-400); Red Blood Count 4.49 X10*6/uL (4.20-5.50); Red Cell Distribution Width 12.2 % (11.0-16.0); White Blood Count 7.9 X10*3/uL (4.8-10.8)
[2021-03-05 11:52] LABS: Bacteria Urine TRACE /LPF; Mucus Urine 2+ /LPF; RBC Urine 0 /HPF (0); Squamous Epithelial Cell Urine 3+ /LPF
[2021-03-05 11:56] LABS: COVID-19 Test Negative (Negative); IDNOW Serial# 9DD0AD1C
[2021-03-05 12:12] LABS: Alanine Aminotransferase 32 U/L (0-31); Albumin Level 4.2 g/dL (3.5-5.0); Alkaline Phosphatase 52 U/L (39-117); Anion Gap 17 (12-20); Aspartate Amino Transferase 26 U/L (5-31); Bilirubin Direct 0.2 mg/dL (0.0-0.5); Bilirubin Total 0.5 mg/dL (0.0-1.0); Blood Urea Nitrogen 8 mg/dL (9-16); Calcium 9.5 mg/dL (8.4-10.2); Carbon Dioxide 18 mmol/L (22-29); Chloride 105 mmol/L (96-108); Creatinine Clr Calc Pharmacy 102.3; Estimated Glomerular Filt Rate > 60; Glucose Random 163 mg/dL (60-115); Lipase 37 U/L (8-78); Potassium 3.9 mmol/L (3.3-5.1); Sodium 136 mmol/L (135-145); Total Protein 7.4 g/dL (6.5-8.0)
--- NOTE | 2021-03-05 12:32 | PC.NURSE ---
pt states she's continuing to vomit. moist md doris made aware. fluids infusing.
[2021-03-05] MEDS: ondansetron HCL 4 MG/2 ML VIAL IVPUSH ×2 (13:10→19:07)
--- NOTE | 2021-03-05 13:56 | PC.NURSE ---
back from bathroom. states she just passed a small clot of bright red blood. provider to be made aware
[2021-03-05 14:39] VITALS: BP 148/83; PULSE 91; RESP 16; TEMP 37.2; O2SAT 100
[2021-03-05] MEDS: Prochlorperazine Edisylate 10 MG/2 ML VIAL IVPUSH (16:25)
[2021-03-05] MEDS: 0.9 % Sodium Chloride 1,000 ML 999 ML IV (16:26)
[2021-03-05 16:27] VITALS: BP 145/85; PULSE 81; RESP 18; O2SAT 98
--- NOTE | 2021-03-05 16:33 | PC.NURSE ---
for last few hours pt has been vomiting on an off mucously bile tinged small amounts. vag bleeding is lessened.
[2021-03-05 18:00] VITALS: BP 109/85; PULSE 89; RESP 18; TEMP 37.9; O2SAT 100
--- NOTE | 2021-03-05 18:03 | P.CONOB_ITS ---
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 The patient has history of marijuana smoking, that was stopped after diagnosis of . The patient did have in mild vaginal bleeding and cramping, but subsided in the emergency room. CBC within normal, lactic acid negative, UA is positive for leukocyte esterase, WBC's and bacteria, AST within normal, ALT mildly elevated at 32, blood sugar 164, the patient received multiple doses of Benadryl, Reglan, Zofran, Compazine still not able to tolerate p.o. diet, pelvic ultrasound showed an intrauterine gestation at 10 weeks and 4 days of gestation with subchorionic hematoma. 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 Review of Systems ROS Unobtainable: All systems reviewed & are unremarkable except as noted in HPI and below Cardiovascular: Denies Palpatations, Loss of consciousness or Chest pain Respiratory: Denies Cough, Wheezing or Shortness of breath Musculoskeletal: Denies Low back pain Gastrointestinal: Denies Heartburn, Constipation, Diarrhea, Nausea or Vomiting Genitourinary: Denies Pain with urination, Burning with urination or Urinary frequency Neurological: Denies Migranes Psychological: Denies Depression [facility] Past Medical History Medical History COVID-19 Surgical History Surgical History Hx of appendectomy Social History Social History Alcohol intake: never Substance Use Type: Marijuana Advance Directives: No Advance Directives Information Provided: No Patient : Yes Meds Allergies Allergy/AdvReac Type Severity Reaction Status Date / Time oxycodone [From PERCOCET] Allergy Unknown RASH Verified 03/04/21 08:46 Active Medications: Current Medications Sodium Chloride (Ns) 1,000 mls @ 999 mls/hr IVCONT .Q1H1M DERRICK Stop: 03/05/21 18:30 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 PRIMER POWDER BLENDER Physical Exam Vitals Vital signs: Temp Pulse Resp BP Pulse Ox 99.0 F 81 18 145/85 H 98 03/05/21 14:39 03/05/21 16:27 03/05/21 16:27 03/05/21 16:27 03/05/21 16:27 BMI result Body Mass Index 33.4 Constitutional General Appearance: Healthy appearing, Well-nourished and Well-developed Psychiatric Mood and Affect: active and alert, normal mood and normal affect Skin Appearance: No rashes and No lesions Lungs Respiratory Effort: No intercostal retractions Auscultation: Clear to auscultation Cardiovascular Auscultation: RRR Abdomen Auscultation/Inspection/Palpation: Normal bowel sounds, Soft, Non-distended and No tenderness Female Genitalia (Pelvic) Exam: Declined by Patient 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 PRIMER POWDER BLENDER - Results Labs CBC & Chem 7: 03/05/21 11:20 03/05/21 11:20 Labs: Short CBC 03/05/21 Range/Units 11:20 WBC 7.9 (4.8-10.8) X10*3/uL Hgb 13.6 (12.0-16.0) g/dl Hct 39.0 (37.0-47.0) % Plt Count 372 (160-400) X10*3/uL BMP 03/05/21 11:20 Sodium 136 Potassium 3.9 Chloride 105 Carbon Dioxide 18 L BUN 8 L Creatinine 0.75 Calcium 9.5 Liver Function 03/05/21 Range/Units 11:20 Total Bilirubin 0.5 (0.0-1.0) mg/dL Direct Bilirubin 0.2 (0.0-0.5) mg/dL AST 26 D (5-31) U/L ALT 32 H (0-31) U/L Alkaline Phosphatase 52 (39-117) U/L Albumin 4.2 (3.5-5.0) g/dL Urine 03/05/21 Range/Units 11:26 Urine Color YELLOW Urine Appearance CLOUDY Urine pH 6.0 (5.0-8.0) Ur Specific [place] >= 1.030 H (1.005-1.025) Urine Protein 2+ H (NEG-TRACE) MG/DL Urine Glucose (UA) 100 H (NEG) MG/DL Imaging US - abdomen: Radiologist's impression: ITS Impressions Ultrasound 03/05/21 14:58 IMPRESSION: 1. Single intrauterine gestation with ultrasound gestational age of 10 weeks, 4 days. 2. Small subchorionic hemorrhage. This could be monitored for change with a repeat pelvic ultrasound in 2-3 weeks or as clinically indicated. Assessment and Plan (1) Hyperemesis arising during : Status: Acute Recommend the follow-up: TSH, fasting blood sugar Any suspicion of cholelithiasis , order a gallbladder ultrasound. IV hydration, till p.o. diet is tolerated. Repeat urine till ketones clear. Pepcid 20 mg IV q12 Alternate among the following different antiemetics if the patient does not improve on one of them: Dramamine 50 mg in 50 cc Q 4-6 IV p.r.n. or Reglan 5-10 mg Q 8 IV p.r.n. or Zofran 8 mg q.12 IV p.r.n. or Phenergan 12.5-25 mg Q 4-6 IV p.r.n. or Chlorpromazine 25-50 mg IV Q 4-6, or 10-25 mg p.o. Q 4-6 p.r.n. If all antiemetics fail to control nausea and vomiting and the patient is not able of tolerate p.o. diet, consider methylprednisolone 16 mg IV or p.o.Q 8 for 3 days then taper over 2 weeks (2) UTI (urinary tract infection): Status: Acute Urine culture to be sent, ceftriaxone IV 1 g Q 24 hour then discharge on Macrobid 100 mg p.o. b.i.d. for 5 days, repeat urine culture after the antibiotic course for a test of cure (3) First trimester bleeding: Status: Acute Discussed with the patient the findings on ultrasound, small subchorionic hematoma, SAB warnings given the patient, she is to reach out in case of worsening of the cramping and or bleeding. Blood type B positive, no need for RhoGAM. As long as bleeding/cramping subsides, will Follow-up with ultrasound on outpatient basis, if the bleeding/cramping get worse will treat accordingly. The patient is able to tolerate p.o. diet will go back on vitamin 1 tab p.o. q.d.
--- NOTE | 2021-03-05 18:21 | PC.NURSE ---
still c/o nausea but less wretching. skin pwd. warm to touch. iv is blown. lucy RN to restablish access.
--- NOTE | 2021-03-05 18:40 | PM.IMHP ---
History of Present Illness Date of Service: 03/05/21 Chief Complaint: intractable vomiting 35-year-old female 10 weeks presents the ER with intractable vomiting. She states this has been worsening over the past week or more and has been seen by her OBGYN 03/04 and prescribed meds that have been ineffective. She states a marijuana history however when she found out she was 10 weeks ago she limited her marijuana use only to small amounts in the morning to help with her nausea. She also complains of dysuric symptoms with visualized hematuria. ER evaluation Labs drawn and essentially normal except for urine with an active sediment. COVID negative. Patient was given 2 L normal saline along with ceftriaxone 1 g after urine obtained for culture. For the vomiting she received Reglan, Zofran, and Compazine with very little effect. At this time she will be admitted for further therapies and OBGYN consultation Review of Systems Review of Systems: denies chest pain Denies shortness of breath Admits to nausea and vomiting; only recently some loose stool Denies abdominal pain/vaginal bleeding Admits dysuric symptoms with visualized blood in urine Admits to generalize headache associated with the vomiting Admits to tactile fevers at [facility] Medical History COVID-19 Surgical History Hx of appendectomy Social History Alcohol intake: never Substance Use Type: Marijuana Advance Directives: No Advance Directives Information Provided: No Patient : Yes Meds Allergies Allergy/AdvReac Type Severity Reaction Status Date / Time oxycodone [From PERCOCET] Allergy Unknown RASH Verified 03/04/21 08:46 Active Medications: Current Medications Acetaminophen (Acetaminophen 325 Mg Tablet) 650 mg PO Q6H PRN PRN Reason: Pain, Mild (Pain Scale 1-3) Ceftriaxone Sodium 1 gm/ (Sodium Chloride) 50 mls @ 100 mls/hr IV DAILY DERRICK Sodium Chloride (Ns) 1,000 mls @ 150 mls/hr IVCONT .Q6H40M DERRICK Ondansetron HCl (Ondansetron Hcl 4 Mg/2 Ml Vial) 4 mg IVPUSH Q8H PRN PRN Reason: Nausea and Vomiting Sodium Chloride (0.9 % Sodium Chloride Flush 3 Ml Syringe) 3 ml IVFLUSH QSHIFT DERRICK Physical Exam Vital Signs and Narrative: Vital Signs: Last Vital Signs Temp 100.3 F 03/05/21 18:00 Pulse 89 03/05/21 18:00 Resp 18 03/05/21 18:00 BP 109/85 03/05/21 18:00 Pulse Ox 100 03/05/21 18:00 BMI result Body Mass Index 33.4 Const: Other: ill-appearing female no acute distress HENMT: Other: mucous membranes dry, oropharynx clear Resp: Other: clear to auscultation bilaterally; no rales rhonchi or wheezes Cardio: Other: no S4; positive S1-S2; no S3 murmurs rubs or gallops GI: Other: soft nontender nondistended with normoactive bowel sounds x4 quadrants Neuro: Other: cranial nerves 2-12 are grossly intact as tested; motor is 5/5 all extremity; sensation intact; cognition appropriate Extrem: Other: no edema bilaterally Results Labs CBC and Chem 7: 03/05/21 11:20 03/05/21 11:20 Labs: Laboratory Results - last 24 hr 03/05/21 03/05/21 03/05/21 11:20 11:20 11:20 MCV 86.9 MCH 30.3 MCHC 34.9 RDW 12.2 Plt Count 372 MPV 8.8 L Immature Gran % (Auto) 0.3 Neut % (Auto) 82.8 H Lymph % (Auto) 11.7 L [place] % (Auto) 4.8 Eos % (Auto) 0.0 Baso % (Auto) 0.4 Lymph # (Auto) 0.9 L [place] # (Auto) 0.4 Eos # (Auto) 0.0 Baso # (Auto) 0.0 Abs Immat Gran (auto) 0.02 Absolute Neuts (auto) 6.6 Absolute Nucleated RBC 0.000 Nucleated RBC % (auto) 0.0 Anion Gap 17 Estim Creat Clear Calc 102.3 Estimated GFR > 60 Random Glucose 163 H Calcium 9.5 Magnesium 2.0 Total Bilirubin 0.5 Direct Bilirubin 0.2 AST 26 D ALT 32 H Alkaline Phosphatase 52 Total Protein 7.4 Albumin 4.2 Lipase 37 Beta HCG, Quant [id number] Urine Color Urine Appearance Urine pH Ur Specific [place] Urine Protein Urine Glucose (UA) Urine Ketones Urine Blood Urine Nitrite Ur Leukocyte Esterase Urine RBC Urine WBC Ur Squamous Epith Cells Urine Bacteria Urine Mucus COVID-19 (TEOFILO) Negative COVID-19 Recorded Future Com See Note Blood Type 03/05/21 03/05/21 11:20 11:26 MCV MCH MCHC RDW Plt Count MPV Immature Gran % (Auto) Neut % (Auto) Lymph % (Auto) [place] % (Auto) Eos % (Auto) Baso % (Auto) Lymph # (Auto) [place] # (Auto) Eos # (Auto) Baso # (Auto) Abs Immat Gran (auto) Absolute Neuts (auto) Absolute Nucleated RBC Nucleated RBC % (auto) Anion Gap Estim Creat Clear Calc Estimated GFR Random Glucose Calcium Magnesium Total Bilirubin Direct Bilirubin AST ALT Alkaline Phosphatase Total Protein Albumin Lipase Beta HCG, Quant Urine Color YELLOW Urine Appearance CLOUDY Urine pH 6.0 Ur Specific [place] >= 1.030 H Urine Protein 2+ H Urine Glucose (UA) 100 H Urine Ketones >=80 Urine Blood NEG Urine Nitrite NEG Ur Leukocyte Esterase TRACE H Urine RBC 0 Urine WBC 10-14 H Ur Squamous Epith Cells 3+ Urine Bacteria TRACE Urine Mucus 2+ COVID-19 (TEOFILO) COVID-19 Clin Com Blood Type B Positive Imaging Radiologist's Impressions: Impressions Ultrasound 03/05/21 14:58 IMPRESSION: 1. Single intrauterine gestation with ultrasound gestational age of 10 weeks, 4 days. 2. Small subchorionic hemorrhage. This could be monitored for change with a repeat pelvic ultrasound in 2-3 weeks or as clinically indicated. Assessment and Plan (1) Hyperemesis arising during : Status: Acute (2) UTI (urinary tract infection): Status: Acute 35-year-old female 10 weeks presents with intractable vomiting over the last week that is not responding to outpatient therapies. Also complains of dysuric symptoms over the last couple days with notable blood in urine today. States history of marijuana use, however when and news of arrive she she limited her marijuana use to only small amounts in the morning to help with the nausea which she states has been present since conception 1. Hyperemesis Gravidarum Continue IV fluids with normal saline at 150 an hour; Zofran p.r.n. Given her current cannibus consumption as minimal in am only(since pg), doubt cannibus induced vomiting. Await Dr Mckee's input 2. Dysuria with active urine sediment Culture pending Will continue CTX paola empirically pending culture results Full code Venodyne boots Quality Stroke Does the patient have a stroke diagnosis?: No VTE Prior VTE?: No VTE Risk Level:: Medical - low VTE Device Contraindication: N/A - Device Ordered VTE Drug Contraindication: Treatment Not Indicated
[2021-03-05] MEDS: Acetaminophen 325 MG TABLET 650 MG PO (19:06)
[2021-03-05] MEDS: cefTRIAXone sodium 1 GM in 0.9 % Sodium Chloride 50 ML IV (19:06)
[2021-03-05] MEDS: 0.9 % Sodium Chloride 1,000 ML 150 ML IVCONT (19:07)
[2021-03-05 19:20] LABS: Lactic Acid 2.1 mmol/L (0.5-2.0)
[2021-03-05 19:21] LABS: Acetaminophen LAB < 1 mcg/mL (<30)
[2021-03-05 21:03] LABS: Reflex Lactate? Lactic Acid Added
[2021-03-05 21:24] VITALS: BP 149/85; PULSE 87; RESP 14; O2SAT 98
[2021-03-05 22:03] LABS: ~Lactic Acid-LAB USE ONLY 1.6 mmol/L (0.5-2.0)
[2021-03-06] VITALS: BP 147/82; PULSE 106; RESP 16; TEMP 36.8; O2SAT 98
[2021-03-06] MEDS: 0.9 % Sodium Chloride 1,000 ML 150 ML IVCONT ×4 (01:53→23:22)
[2021-03-06] MEDS: ondansetron HCL 4 MG/2 ML VIAL IVPUSH ×3 (02:36→16:37)
[2021-03-06 06:31] LABS: MANUAL DIFF FLAG NO
[2021-03-06 06:42] LABS: Basophils Percent Auto 0.1 % (0-2); Eosinophils Percent Auto 0.1 % (0-4); Hematocrit 33.6 % (37.0-47.0); Hemoglobin 11.6 g/dl (12.0-16.0); Imm Gran Abs Auto 0.05 X10*3/uL (0.00-0.03); Imm Gran Pct Auto 0.4 % (0.0-0.4); Lymphocytes Absolute Auto 1.1 X10*3/uL (1.2-4.9); Lymphocytes Percent Auto 8.7 % (20-40); Mean Corpuscular HGB Conc 34.5 g/dl (31.0-35.0); Mean Corpuscular Hemoglobin 29.8 pg (27.0-33.0); Mean Corpuscular Volume 86.4 fL (80.0-98.0); Mean Platelet Volume 8.9 fL (9.4-12.3); Monocytes Absolute Auto 0.9 X10*3/uL (0.1-1.2); Neutrophils Absolute Auto 10.9 x10*3/uL (2.0-8.3); Neutrophils Percent Auto 83.7 % (45-73); Platelet Count 320 X10*3/uL (160-400); Red Blood Count 3.89 X10*6/uL (4.20-5.50); Red Cell Distribution Width 12.2 % (11.0-16.0)
[2021-03-06 06:52] LABS: Alanine Aminotransferase 25 U/L (0-31); Albumin Level 3.8 g/dL (3.5-5.0); Alkaline Phosphatase 44 U/L (39-117); Anion Gap 14 (12-20); Aspartate Amino Transferase 18 U/L (5-31); Bilirubin Total 0.4 mg/dL (0.0-1.0); Blood Urea Nitrogen 4 mg/dL (9-16); Calcium 8.5 mg/dL (8.4-10.2); Carbon Dioxide 17 mmol/L (22-29); Chloride 109 mmol/L (96-108); Creatinine Clr Calc Pharmacy 118.1; Estimated Glomerular Filt Rate > 60; Glucose Fasting 127 mg/dL (60-99); Potassium 3.5 mmol/L (3.3-5.1); Sodium 136 mmol/L (135-145); Total Protein 6.5 g/dL (6.5-8.0)
[2021-03-06] MEDS: Metoclopramide HCl 10 MG/2 ML VIAL 5 MG IVPUSH (07:23)
[2021-03-06 07:26] VITALS: BP 131/79; PULSE 86; RESP 18; TEMP 37.4; O2SAT 100
--- NOTE | 2021-03-06 09:57 | PHA.MEDREC ---
Pharmacy Consult ? Medication Reconciliation RN COMPLETED MED REC. PHARMACY REVIEWED
--- NOTE | 2021-03-06 11:32 | HO.PM.IMPN ---
Subjective Subjective Date of Service: 03/06/21 Interval History: continues to have intermittent nausea and vomiting overnight. Some sleep per patient Review of Systems denies chest pain denies shortness of breath Admits persistent nausea and vomiting despite therapies Physical Exam Vital Signs: Vital Signs: Last Vital Signs Temp 99.4 F 03/06/21 07:26 Pulse 86 03/06/21 07:26 Resp 18 03/06/21 07:26 BP 131/79 03/06/21 07:26 Pulse Ox 100 03/06/21 07:26 BMI result Body Mass Index 33.4 Const: Other: ill-appearing female no acute distress HENMT: Other: mucous membranes dry, oropharynx clear Resp: Other: clear to auscultation bilaterally; no rales rhonchi or wheezes Cardio: Other: no S4; positive S1-S2; no S3 murmurs rubs or gallops GI: Other: soft nontender nondistended with normoactive bowel sounds x4 quadrants Neuro: Other: cranial nerves 2-12 are grossly intact as tested; motor is 5/5 all extremity; sensation intact; cognition appropriate Extrem: Other: no edema bilaterally Objective Data Active Medications Acetaminophen (Acetaminophen 325 Mg Tablet) 650 mg PO Q6H PRN PRN Reason: Pain, Mild (Pain Scale 1-3) Last Admin: 03/05/21 19:06 Dose: 650 mg Documented by: REZA Ceftriaxone Sodium 1 gm/ (Sodium Chloride) 50 mls @ 100 mls/hr IV Q24H [facility] Sodium Chloride (Ns) 1,000 mls @ 150 mls/hr IVCONT .Q6H40M [facility] Last Admin: 03/06/21 09:24 Dose: 150 mls/hr Documented by: MIRELA Ondansetron HCl (Ondansetron Hcl 4 Mg/2 Ml Vial) 4 mg IVPUSH Q8H PRN PRN Reason: Nausea and Vomiting Last Admin: 03/06/21 09:25 Dose: 4 mg Documented by: MIRELA Sodium Chloride (0.9 % Sodium Chloride Flush 3 Ml Syringe) 3 ml IVFLUSH QSHIFT [facility] Last Admin: 03/06/21 08:08 Dose: Not Given Documented by: AYAKA Non-Admin Reason: IV Running Labs CBC & Chem 7: 03/06/21 06:26 03/06/21 06:26 Labs: Laboratory Results - last 24 hr 03/05/21 03/05/21 03/05/21 11:20 11:20 11:20 MCV 86.9 MCH 30.3 MCHC 34.9 RDW 12.2 Plt Count 372 MPV 8.8 L Immature Gran % (Auto) 0.3 Neut % (Auto) 82.8 H Lymph % (Auto) 11.7 L [place] % (Auto) 4.8 Eos % (Auto) 0.0 Baso % (Auto) 0.4 Lymph # (Auto) 0.9 L [place] # (Auto) 0.4 Eos # (Auto) 0.0 Baso # (Auto) 0.0 Abs Immat Gran (auto) 0.02 Absolute Neuts (auto) 6.6 Absolute Nucleated RBC 0.000 Nucleated RBC % (auto) 0.0 Anion Gap 17 Estim Creat Clear Calc 102.3 Estimated GFR > 60 Random Glucose 163 H Fasting Glucose Lactic Acid Lactic Acid Fup @ 2Hr Calcium 9.5 Magnesium 2.0 Total Bilirubin 0.5 Direct Bilirubin 0.2 AST 26 D ALT 32 H Alkaline Phosphatase 52 Total Protein 7.4 Albumin 4.2 Lipase 37 Beta HCG, Quant [id number] Urine Color Urine Appearance Urine pH Ur Specific [place] Urine Protein Urine Glucose (UA) Urine Ketones Urine Blood Urine Nitrite Ur Leukocyte Esterase Urine RBC Urine WBC Ur Squamous Epith Cells Urine Bacteria Urine Mucus Acetaminophen COVID-19 (TEOFILO) Negative COVID-19 Clin Com See Note Blood Type 03/05/21 03/05/21 03/05/21 11:20 11:26 18:58 MCV MCH MCHC RDW Plt Count MPV Immature Gran % (Auto) Neut % (Auto) Lymph % (Auto) [place] % (Auto) Eos % (Auto) Baso % (Auto) Lymph # (Auto) [place] # (Auto) Eos # (Auto) Baso # (Auto) Abs Immat Gran (auto) Absolute Neuts (auto) Absolute Nucleated RBC Nucleated RBC % (auto) Anion Gap Estim Creat Clear Calc Estimated GFR Random Glucose Fasting Glucose Lactic Acid 2.1 H* Lactic Acid Fup @ 2Hr Calcium Magnesium Total Bilirubin Direct Bilirubin AST ALT Alkaline Phosphatase Total Protein Albumin Lipase Beta HCG, Quant Urine Color YELLOW Urine Appearance CLOUDY Urine pH 6.0 Ur Specific [place] >= 1.030 H Urine Protein 2+ H Urine Glucose (UA) 100 H Urine Ketones >=80 Urine Blood NEG Urine Nitrite NEG Ur Leukocyte Esterase TRACE H Urine RBC 0 Urine WBC 10-14 H Ur Squamous Epith Cells 3+ Urine Bacteria TRACE Urine Mucus 2+ Acetaminophen COVID-19 (TEOFILO) COVID-19 Clin Com Blood Type B Positive 03/05/21 03/05/21 03/06/21 18:58 21:37 06:26 MCV 86.4 MCH 29.8 MCHC 34.5 RDW 12.2 Plt Count 320 MPV 8.9 L Immature Gran % (Auto) 0.4 Neut % (Auto) 83.7 H Lymph % (Auto) 8.7 L [place] % (Auto) 7.0 Eos % (Auto) 0.1 Baso % (Auto) 0.1 Lymph # (Auto) 1.1 L [place] # (Auto) 0.9 Eos # (Auto) 0.0 Baso # (Auto) 0.0 Abs Immat Gran (auto) 0.05 H Absolute Neuts (auto) 10.9 H Absolute Nucleated RBC 0.000 Nucleated RBC % (auto) 0.0 Anion Gap Estim Creat Clear Calc Estimated GFR Random Glucose Fasting Glucose Lactic Acid Lactic Acid Fup @ 2Hr 1.6 Calcium Magnesium Total Bilirubin Direct Bilirubin AST ALT Alkaline Phosphatase Total Protein Albumin Lipase Beta HCG, Quant Urine Color Urine Appearance Urine pH Ur Specific [place] Urine Protein Urine Glucose (UA) Urine Ketones Urine Blood Urine Nitrite Ur Leukocyte Esterase Urine RBC Urine WBC Ur Squamous Epith Cells Urine Bacteria Urine Mucus Acetaminophen < 1 COVID-19 (TEOFILO) COVID-19 Clin Com Blood Type 03/06/21 06:26 MCV MCH MCHC RDW Plt Count MPV Immature Gran % (Auto) Neut % (Auto) Lymph % (Auto) [place] % (Auto) Eos % (Auto) Baso % (Auto) Lymph # (Auto) [place] # (Auto) Eos # (Auto) Baso # (Auto) Abs Immat Gran (auto) Absolute Neuts (auto) Absolute Nucleated RBC Nucleated RBC % (auto) Anion Gap 14 Estim Creat Clear Calc 118.1 Estimated GFR > 60 Random Glucose Fasting Glucose 127 H Lactic Acid Lactic Acid Fup @ 2Hr Calcium 8.5 D Magnesium 2.0 Total Bilirubin 0.4 Direct Bilirubin AST 18 ALT 25 Alkaline Phosphatase 44 Total Protein 6.5 Albumin 3.8 Lipase Beta HCG, Quant Urine Color Urine Appearance Urine pH Ur Specific [place] Urine Protein Urine Glucose (UA) Urine Ketones Urine Blood Urine Nitrite Ur Leukocyte Esterase Urine RBC Urine WBC Ur Squamous Epith Cells Urine Bacteria Urine Mucus Acetaminophen COVID-19 (TEOFILO) COVID-19 Clin Com Blood Type Microbiology Microbiology Results: Microbiology 03/05/21 Unknown Urine Culture - Final Urine clean catch - Urine grewal top Assessment and Plan (1) Hyperemesis arising during : Status: Acute (2) UTI (urinary tract infection): Status: Acute Assessment and Plan: 35-year-old female 10 weeks presents with intractable vomiting over the last week that is not responding to outpatient therapies. Also complains of dysuric symptoms over the last couple days with notable blood in urine today. States history of marijuana use, however when and news of arrive she she limited her marijuana use to only small amounts in the morning to help with the nausea which she states has been present since conception 1. Hyperemesis Gravidarum Essentially unchanged overnight Continue IV fluids with normal saline at 150 an hour; Zofran p.r.n. Will follow urine ketones until clear Antiemetic regimen as per 2. Dysuria with active urine sediment Urine culture likely contaminent...low grade fever will continue CTX. D/c on Macrobid. Full code [employer] boots Quality Stroke Does the patient have a stroke diagnosis?: No VTE Prior VTE?: No VTE Risk Level:: Medical - low VTE Device Contraindication: N/A - Device Ordered VTE Drug Contraindication: Treatment Not Indicated
[2021-03-06 12:09] LABS: Thyroid Stimulating Hormone 0.81 uIU/mL (0.32-4.0)
[2021-03-06] MEDS: Famotidine/PF 20 MG/2 ML VIAL IVPUSH ×2 (12:24→20:17)
[2021-03-06 15:46] VITALS: BP 160/84; PULSE 82; RESP 18; TEMP 36.6; O2SAT 100
--- NOTE | 2021-03-06 17:01 | PC.NURSE ---
pt still having nausea and vomiting, BP elevated. Doc Mlapah for Doc Corrie notified.
[2021-03-06 17:15] VITALS: BP 142/78
--- NOTE | 2021-03-06 18:38 | PM.EVENT ---
Event Note Date of Service: 03/06/21 Event Note: spoke to Dr. Mckee he recommend to check blood pressure closely if systolic BP greater than 160/110 he recommend to repeat in 15 minutes and if 2 blood pressure readings remains above 160/110 he recommend nifedipine 10 mg and then to recheck blood pressure in 20 minutes of remain elevated to recommend nifedipine 20 mg In regard to elevated fasting blood sugar of 127 he recommend to repeat fasting blood sugar again tomorrow and to check 2 hour postprandial blood sugars x3 At present patient blood pressure is stable 142/78 Continue current treatment and follow BP closely
--- NOTE | 2021-03-06 18:39 | P.PNOB_ITS ---
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 On regular diet. No more vaginal bleeding or cramping On ceftriaxone 1 g Q 24 hours Blood Pressure in the 140s over 80s except twice blood pressure's 161/108 and 160/84 Fasting blood sugar 127 A/P: 10 weeks and 5 days with: 1-hyperemesis gravidarum-Pepcid 20 mg IV q.12, and alternate different antiemetics till the patient is tolerating p.o. diet if all fail, consider methylprednisolone. 2-UTI-will keep on ceftriaxone 1 g Q 24 , check and culture sensitivity, and discharge on Macrobid 100 mg p.o. b.i.d. for 5 days, unless urine culture sensitivity shows resistance to nitrofurantoin 3-blood pressure in the 140s except twice where the blood pressure was in the severe range, 160 / 84 and 161/108 In case blood pressure is in the severe range, i.e., 160 and/or 110 and above, blood pressure needs to be repeated in 15 minutes, if persistent severe hypertension, treat with 10 mg of nifedipine p.o. and repeat blood pressure in 20 minutes, if severe blood pressure is persistent, treat with 20 mg nifedipine and repeat blood pressure in 20 minutes persistent severe hypertension treat with labetalol IV 10-20 mg IV and repeat impression 20 minutes if persistent consult ICU physician. Indication to treat chronic hypertension in early is persistent blood pressure and 160s and/or over 110, will keep monitoring blood pressure and decide accordingly 4-fasting blood sugar was 127, will check fasting blood sugar and 2 hour pos tprandial if FBS is call or Above 95 and/or postprandial blood sugarequals 120 or above, the patient will have the diagnosis of pre gestational diabetes and will treat with metformin or insulin . Discussed the case with . 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: Results Labs CBC & Chem 7: 03/06/21 06:26 03/06/21 06:26 Labs: Laboratory Results - last 24 hr 03/05/21 03/05/21 03/05/21 18:58 18:58 21:37 WBC RBC Hgb Hct MCV MCH MCHC RDW Plt Count MPV Immature Gran % (Auto) Neut % (Auto) Lymph % (Auto) [place] % (Auto) Eos % (Auto) Baso % (Auto) Lymph # (Auto) [place] # (Auto) Eos # (Auto) Baso # (Auto) Abs Immat Gran (auto) Absolute Neuts (auto) Absolute Nucleated RBC Nucleated RBC % (auto) Sodium Potassium Chloride Carbon Dioxide Anion Gap BUN Creatinine Estim Creat Clear Calc Estimated GFR Fasting Glucose Lactic Acid 2.1 H* Lactic Acid Fup @ 2Hr 1.6 Calcium Magnesium Total Bilirubin AST ALT Alkaline Phosphatase Total Protein Albumin TSH Acetaminophen < 1 03/06/21 03/06/21 06:26 06:26 WBC 13.0 H RBC 3.89 L Hgb 11.6 L Hct 33.6 L MCV 86.4 MCH 29.8 MCHC 34.5 RDW 12.2 Plt Count 320 MPV 8.9 L Immature Gran % (Auto) 0.4 Neut % (Auto) 83.7 H Lymph % (Auto) 8.7 L [place] % (Auto) 7.0 Eos % (Auto) 0.1 Baso % (Auto) 0.1 Lymph # (Auto) 1.1 L [place] # (Auto) 0.9 Eos # (Auto) 0.0 Baso # (Auto) 0.0 Abs Immat Gran (auto) 0.05 H Absolute Neuts (auto) 10.9 H Absolute Nucleated RBC 0.000 Nucleated RBC % (auto) 0.0 Sodium 136 Potassium 3.5 Chloride 109 H Carbon Dioxide 17 L Anion Gap 14 BUN 4 L Creatinine 0.65 Estim Creat Clear Calc 118.1 Estimated GFR > 60 Fasting Glucose 127 H Lactic Acid Lactic Acid Fup @ 2Hr Calcium 8.5 D Magnesium 2.0 Total Bilirubin 0.4 AST 18 ALT 25 Alkaline Phosphatase 44 Total Protein 6.5 Albumin 3.8 TSH 0.81 Acetaminophen 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
[2021-03-06] MEDS: cefTRIAXone sodium 1 GM in 0.9 % Sodium Chloride 50 ML IV (18:40)
--- NOTE | 2021-03-06 19:00 | P.EN_ITS ---
Event Note Date of Service: 03/06/21 Event Note: Interval history: The patient continues to have intermittent nausea and vomiting overnight.? On regular diet.? No more vaginal bleeding or cramping On ceftriaxone 1 g Q 24 hours Blood Pressure in the 140s over 80s except twice blood pressure's 161/108 and 160/84 Fasting blood sugar 127 A/P:? 10 weeks and 5 days with: 1-hyperemesis gravidarum-Pepcid 20 mg IV q.12, and alternate different antiemetics till the patient is tolerating p.o. diet if all fail, consider m ethylprednisolone. 2-UTI-will keep on ceftriaxone 1 g Q 24 , check and culture sensitivity, and discharge on Macrobid 100 mg p.o. b.i.d. for 5 days, unless urine culture sensitivity shows resistance to nitrofurantoin 3-blood pressure in the 140s except twice where the blood pressure was in the severe range, 160 / 84 and 161/108 In case blood pressure is in the severe range, i.e., 160 and/or 110 and above, blood pressure needs to be repeated in 15 minutes, if persistent severe hypertension, treat with 10 mg of nifedipine p.o. and repeat blood pressure in 20 minutes, if severe blood pressure is persistent, treat with 20 mg nifedipine and repeat blood pressure in 20 minutes persistent severe hypertension treat with labetalol IV 10-20 mg IV and repeat impression 20 minutes if persistent consult ICU physician. Indication to treat chronic hypertension in early is persistent blood pressure and 160s and/or over 110, will keep monitoring blood pressure and decide accordingly 4-fasting blood sugar was 127, will check fasting blood sugar and 2 hour postprandial if FBS is call or Above 95 and/or postprandial blood sugarequals 120 or above, the patient will have the diagnosis of pre gestational diabetes and will? treat with metformin or insulin . Discussed the case with .
[2021-03-06 19:20] VITALS: BP 119/79; PULSE 77; RESP 18; TEMP 36.4; O2SAT 100
[2021-03-06] MEDS: 0.9 % Sodium Chloride Flush 3 ML SYRINGE IVFLUSH (20:17)
[2021-03-07] VITALS (10 sets, daily range): BP systolic 102–169; BP diastolic 52–96; PULSE 68–86; RESP 16–18; TEMP 36.6–37; O2SAT 98–100; BMI 33.4
[2021-03-07] MEDS: ondansetron HCL 4 MG/2 ML VIAL IVPUSH ×3 (02:33→20:46)
--- NOTE | 2021-03-07 04:23 | PC.NURSE ---
PATIENT REQUESTED AND GIVEN AN ORANGE JELLO APPROX., 0210, THEN VOMITED 100ML ORANGE LIQUID WATER AT 0235. MEDICATED WITH ZOFRAN 0235. PATIENT REQUESTING A SHOWER SHORTLY AFTERWARDS AND DESPITE ALL THE REASONS TO STAY IN BED AND REST SAFELY, IVF, IV SITE, SHE INSISTED. PATIENT STATED WARM WATER IS WHAT FEELS BEST FOR HER. AFTER SHOWER PT STATED SHE HAD SOME SMALL DRIPS/ SPOTTING OF BLOOD AT END OF SHOWER. NOT SEEN BY THIS LOCK TECHNICIAN, PT BTB WITH NO ACTIVE BLEEDING. DR. FONTANEZ WAS SENT A TIGER TEXT TO THIS PT STATED HE WANTED TO KNOW IF SHE STARTED BLEEDING. NOTE SENT AT 0326, AND RESPONSE AT 0329 WAS TO LET HIM KNOW IF VAGINAL BLEEDING BECAME HEAVY. WILL CONT TO MONITOR CLOSELY.
[2021-03-07 05:44] LABS: Hemoglobin 11.4 g/dl (12.0-16.0); Mean Corpuscular Hemoglobin 29.8 pg (27.0-33.0); PLT CLUMP 1; Red Blood Count 3.82 X10*6/uL (4.20-5.50); Red Cell Distribution Width 12.3 % (11.0-16.0); SCAN SMEAR FLAG 1
[2021-03-07 05:46] LABS: Basophils Percent Auto 0.2 % (0-2); Hematocrit 34.4 % (37.0-47.0); Imm Gran Abs Auto 0.04 X10*3/uL (0.00-0.03); Imm Gran Pct Auto 0.5 % (0.0-0.4); Lymphocytes Percent Auto 12.4 % (20-40); Mean Corpuscular HGB Conc 33.1 g/dl (31.0-35.0); Mean Corpuscular Volume 90.1 fL (80.0-98.0); Mean Platelet Volume 9.9 fL (9.4-12.3); Monocytes Absolute Auto 0.7 X10*3/uL (0.1-1.2); Monocytes Percent Auto 8.6 % (2-11); Neutrophils Absolute Auto 6.4 x10*3/uL (2.0-8.3); Neutrophils Percent Auto 78.3 % (45-73)
[2021-03-07 05:53] LABS: MANUAL DIFF FLAG NO; White Blood Count 8.2 X10*3/uL (4.8-10.8)
[2021-03-07 06:02] LABS: Alanine Aminotransferase 39 U/L (0-31); Albumin Level 3.5 g/dL (3.5-5.0); Alkaline Phosphatase 41 U/L (39-117); Anion Gap 11 (12-20); Aspartate Amino Transferase 30 U/L (5-31); Bilirubin Total 0.8 mg/dL (0.0-1.0); Blood Urea Nitrogen 5 mg/dL (9-16); Calcium 8.3 mg/dL (8.4-10.2); Carbon Dioxide 17 mmol/L (22-29); Chloride 109 mmol/L (96-108); Creatinine Clr Calc Pharmacy 116.3; Estimated Glomerular Filt Rate > 60; Glucose Fasting 110 mg/dL (60-99); Magnesium 2.1 mg/dL (1.6-2.6); Potassium 3.4 mmol/L (3.3-5.1); Sodium 134 mmol/L (135-145)
[2021-03-07 06:05] LABS: Platelet Count 223 X10*3/uL (160-400)
[2021-03-07] MEDS: 0.9 % Sodium Chloride 1,000 ML 150 ML IVCONT ×3 (06:35→23:27)
[2021-03-07] MEDS: Famotidine/PF 20 MG/2 ML VIAL IVPUSH ×2 (08:25→20:43)
--- NOTE | 2021-03-07 09:13 | PM.GYNPNOP ---
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 The patient was able to tolerate some crackers in the morning Had an episode of spotting in the shower overnight cramping on and off. 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 Vitals Vital signs: Temp Pulse Resp BP Pulse Ox 97.8 F 75 16 148/77 H 100 03/07/21 07:50 03/07/21 07:50 03/07/21 07:50 03/07/21 08:28 03/07/21 07:50 BMI result Body Mass Index 33.4 Abdomen Auscultation/Inspection/Palpation: Normal bowel sounds, Soft, Non-distended and No tenderness [employer] LEVEL[employer] - Prog Note: Results Labs CBC & Chem 7: 03/07/21 05:27 03/07/21 05:27 Labs: Laboratory Results - last 24 hr 03/06/21 03/07/21 03/07/21 06:26 05:27 05:27 WBC 8.2 RBC 3.82 L Hgb 11.4 L Hct 34.4 L MCV 90.1 MCH 29.8 MCHC 33.1 RDW 12.3 Plt Count 223 D MPV 9.9 Immature Gran % (Auto) 0.5 H Neut % (Auto) 78.3 H Lymph % (Auto) 12.4 L [place] % (Auto) 8.6 Eos % (Auto) 0.0 Baso % (Auto) 0.2 Lymph # (Auto) 1.0 L [place] # (Auto) 0.7 Eos # (Auto) 0.0 Baso # (Auto) 0.0 Abs Immat Gran (auto) 0.04 H Absolute Neuts (auto) 6.4 Absolute Nucleated RBC 0.000 Nucleated RBC % (auto) 0.0 Sodium 134 L Potassium 3.4 Chloride 109 H Carbon Dioxide 17 L Anion Gap 11 L BUN 5 L Creatinine 0.66 Estim Creat Clear Calc 116.3 Estimated GFR > 60 Fasting Glucose 110 H Calcium 8.3 L Magnesium 2.1 Total Bilirubin 0.8 AST 30 D ALT 39 H Alkaline Phosphatase 41 Total Protein 6.0 L Albumin 3.5 TSH 0.81 [employer] - A/P (1) Hyperemesis arising during : Status: Acute Assessment and Plan: If Nausea and vomiting seems to be resistant to Zofran, Phenergan and Reglan, consider Dramamine 50 mg in 50 cc Q 4-6 hours IV or chlorpromazine 25-50 IV Q 4-6 p.r.n. , and attempt p.o. diet, keep on Pepcid (2) UTI (urinary tract infection): Status: Acute Assessment and Plan: Since urine culture grew only mixed bacterial triny will discontinue ceftriaxone (3) Hypertension affecting in first trimester: Status: Acute Assessment and Plan: Multiple systolic blood pressures in the 160 and above over the last 48 hours, will start on labetalol 100 mg p.o. b.i.d. and titrate the dose as needed (4) Diabetes in undelivered : Status: Acute Assessment and Plan: Fasting blood sugar twice above 95, patient has be gestation diabetes will start patient on metformin versus insulin. Discussed with the patient all the pros and cons risks and benefits of insulin versus metformin treatment for diabetes The patient decided proceed with metformin Will start metformin 500 mg q.h.s. Will check 2 hour postprandial x3 and determine the need for metformin in a.m. (5) First trimester bleeding: Status: Acute Assessment and Plan: If bleeding is heavy will repeat ultrasound. Time Spent With Patient Time: Total time spent is greater than 50% in coordination of care (as documented) at patient's floor/unit and/or counseling patient: Time with patient: 15 - 24 minutes Quality Measures - LIQUID LOADER H&P VTE Prior VTE?: No VTE Risk Level:: Medical - low VTE Device Contraindication: N/A - Device Ordered VTE Drug Contraindication: Treatment Not Indicated
[2021-03-07] MEDS: Labetalol HCL 100 MG TABLET PO ×2 (09:28→16:58)
[2021-03-07] MEDS: Acetaminophen 325 MG TABLET 650 MG PO (09:31)
--- NOTE | 2021-03-07 10:48 | PC.NURSE ---
0800, patient complaint of nausea and requesting to shower. Blood pressure 169/96 Dr. Soto made aware. Recheck of blood pressure after shower was 148/77, Dr. soto made aware. Order placed for 100mg po labetolol. Labetolol given and IVP zofran given. Patient took second shower at 10am, blood pressure 151/92 Dr. Soto made aware. NOW patient nausea is better, patient ate crackers and juice. Will check POC glucose at 1230. Will continue to monitor blood pressure.
--- NOTE | 2021-03-07 12:57 | PC.NURSE ---
Patient POC blood glucose two hours after eating crackers and juice was 131. Patient wants to try to eat toast and juice for lunch will recheck POC glucose around 1500.
[2021-03-07 12:58] LABS: Glucose, Whole Blood 131 mg/dL (60-115)
--- NOTE | 2021-03-07 15:33 | P.PNIM_ITS ---
Subjective Subjective Date of Service: 03/07/21 Interval History: June take small amounts p.o. this afternoon. States feeling somewhat better Review of Systems denies chest pain Denies shortness of breath Denies diarrhea still with some nausea no vomiting Physical Exam Vital Signs: Vital Signs: Last Vital Signs Temp 98.1 F 03/07/21 11:09 Pulse 68 03/07/21 11:09 Resp 16 03/07/21 11:09 BP 145/78 H 03/07/21 11:09 Pulse Ox 100 03/07/21 11:09 BMI result Body Mass Index 33.4 Const: Other: ill-appearing female no acute distress HENMT: Other: mucous membranes dry, oropharynx clear Resp: Other: clear to auscultation bilaterally; no rales rhonchi or wheezes Cardio: Other: no S4; positive S1-S2; no S3 murmurs rubs or gallops GI: Other: soft nontender nondistended with normoactive bowel sounds x4 quadr ants Neuro: Other: cranial nerves 2-12 are grossly intact as tested; motor is 5/5 all extremity; sensation intact; cognition appropriate Extrem: Other: no edema bilaterally Objective Data Active Medications Acetaminophen (Acetaminophen 325 Mg Tablet) 650 mg PO Q6H PRN PRN Reason: Pain, Mild (Pain Scale 1-3) Last Admin: 03/07/21 09:31 Dose: 650 mg Documented by: BAUTISTA Famotidine (Famotidine/Pf 20 Mg/2 Ml Vial) 20 mg IVPUSH BID [facility] Last Admin: 03/07/21 08:25 Dose: 20 mg Documented by: BAUTISTA Ceftriaxone Sodium 1 gm/ (Sodium Chloride) 50 mls @ 100 mls/hr IV Q24H [facility] Last Infusion: 03/06/21 20:24 Dose: 0 mls/hr Documented by: KUSUM Sodium Chloride (Ns) 1,000 mls @ 150 mls/hr IVCONT .Q6H40M [facility] Last Admin: 03/07/21 06:35 Dose: 150 mls/hr Documented by: KUSUM Promethazine HCl 6.25 mg/ (Sodium Chloride) 50.25 mls @ 201 mls/hr IV Q6H PRN PRN Reason: nausea and vomiting Last Infusion: 03/07/21 13:21 Dose: 0 mls/hr Documented by: BAUTISTA Labetalol HCl (Labetalol Hcl 100 Mg Tablet) 100 mg PO BID@0900,1700 [facility] Last Admin: 03/07/21 09:28 Dose: 100 mg Documented by: BAUTISTA Metformin HCl (Metformin Hcl 500 Mg Tablet) 500 mg PO BEDTIME DERRICK Ondansetron HCl (Ondansetron Hcl 4 Mg/2 Ml Vial) 4 mg IVPUSH Q8H PRN PRN Reason: Nausea and Vomiting Last Admin: 03/07/21 10:37 Dose: 4 mg Documented by: BAUTISTA Sodium Chloride (0.9 % Sodium Chloride Flush 3 Ml Syringe) 3 ml IVFLUSH QSHIFT [facility] Last Admin: 03/07/21 14:51 Dose: Not Given Documented by: BAUTISTA Non-Admin Reason: IV Running Labs CBC & Chem 7: 03/07/21 05:27 03/07/21 05:27 Labs: Laboratory Results - last 24 hr 03/07/21 03/07/21 03/07/21 05:27 05:27 12:55 MCV 90.1 MCH 29.8 MCHC 33.1 RDW 12.3 Plt Count 223 D MPV 9.9 Immature Gran % (Auto) 0.5 H Neut % (Auto) 78.3 H Lymph % (Auto) 12.4 L [place] % (Auto) 8.6 Eos % (Auto) 0.0 Baso % (Auto) 0.2 Lymph # (Auto) 1.0 L [place] # (Auto) 0.7 Eos # (Auto) 0.0 Baso # (Auto) 0.0 Abs Immat Gran (auto) 0.04 H Absolute Neuts (auto) 6.4 Absolute Nucleated RBC 0.000 Nucleated RBC % (auto) 0.0 Anion Gap 11 L Estim Creat Clear Calc 116.3 Estimated GFR > 60 POC Glucose 131 H Fasting Glucose 110 H Calcium 8.3 L Magnesium 2.1 Total Bilirubin 0.8 AST 30 D ALT 39 H Alkaline Phosphatase 41 Total Protein 6.0 L Albumin 3.5 Microbiology Microbiology Results: Microbiology 03/05/21 21:37 Blood Culture - Preliminary Blood - Venous No growth after 24 hours. 03/05/21 18:58 Blood Culture - Preliminary Blood - Venous No growth after 24 hours. Assessment and Plan (1) Hypertension affecting in first trimester: Status: Acute (2) Hyperemesis arising during : Status: Acute Assessment and Plan: 35-year-old female 10 weeks presents with intractable vomiting over the last week that is not responding to outpatient therapies. Also complains of dysuric symptoms over the last couple days with notable blood in urine today. States history of marijuana use, however when and news of arrive she she limited her marijuana use to only small amounts in the morning to help with the nausea which she states has been present since conception 1. Hyperemesis Gravidarum Improved today...small amounts po Continue IV fluids with normal saline at 150 an hour; Zofran p.r.n. Will follow urine ketones Antiemetic regimen as per 2. Dysuria with active urine sediment Discussed with Dr Alcantar....switch to Macrobid x 5days 3. HTN Started on Labetalol Follow BP's and adjust as indicated 4, DM(gestational) Started on Metformin by Dr Gonzáles. Follow PP sugars x 24hrs. Full code [facility] Quality Stroke Does the patient have a stroke diagnosis?: No VTE Prior VTE?: No VTE Risk Level:: Medical - low VTE Device Contraindication: N/A - Device Ordered VTE Drug Contraindication: Treatment Not Indicated
--- NOTE | 2021-03-07 16:04 | MHC.CM.PN ---
CM MET WITH PT AND HER WHO WAS AT BEDSIDE PT REPORTS SHE IS INDEPENDENT WITH ALL CARE AND MOBILITY PT DENIES HAVING DME OR HOME/COMMUNITY SERVICES PT DECLINES TO COMPLETE A HCP PT CONFIRMS HER PCP IS [facility] CURRENT DCP IS HOME WITH NO SERVICES PT TO F/U WITH OB AT [facility] TO TRANSPORT
[2021-03-07 16:46] LABS: Glucose, Whole Blood 98 mg/dL (60-115)
[2021-03-07] MEDS: Metoclopramide HCl 10 MG/2 ML VIAL IVPUSH (18:31)
[2021-03-07] MEDS: cefTRIAXone sodium 1 GM in 0.9 % Sodium Chloride 50 ML IV (18:31)
[2021-03-07 20:21] LABS: Glucose, Whole Blood 110 mg/dL (60-115)
[2021-03-07] MEDS: metFORMIN HCl 500 MG TABLET PO (20:43)
[2021-03-08] VITALS (7 sets, daily range): BP systolic 119–167; BP diastolic 55–89; PULSE 65–84; RESP 17–18; TEMP 36.2–37.2; O2SAT 99–100
[2021-03-08] MEDS: Metoclopramide HCl 10 MG/2 ML VIAL IVPUSH ×2 (04:15→11:39)
[2021-03-08 06:18] LABS: Basophils Percent Auto 0.4 % (0-2); Eosinophils Percent Auto 0.1 % (0-4); Hematocrit 29.5 % (37.0-47.0); Hemoglobin 10.3 g/dl (12.0-16.0); Imm Gran Abs Auto 0.02 X10*3/uL (0.00-0.03); Imm Gran Pct Auto 0.2 % (0.0-0.4); Lymphocytes Absolute Auto 1.7 X10*3/uL (1.2-4.9); Lymphocytes Percent Auto 21.6 % (20-40); MANUAL DIFF FLAG NO; Mean Corpuscular HGB Conc 34.9 g/dl (31.0-35.0); Mean Corpuscular Hemoglobin 29.9 pg (27.0-33.0); Mean Corpuscular Volume 85.8 fL (80.0-98.0); Mean Platelet Volume 9.3 fL (9.4-12.3); Monocytes Absolute Auto 0.9 X10*3/uL (0.1-1.2); Monocytes Percent Auto 11.7 % (2-11); Neutrophils Absolute Auto 5.3 x10*3/uL (2.0-8.3); Platelet Count 253 X10*3/uL (160-400); Red Blood Count 3.44 X10*6/uL (4.20-5.50); Red Cell Distribution Width 11.9 % (11.0-16.0); White Blood Count 8.1 X10*3/uL (4.8-10.8)
[2021-03-08] MEDS: 0.9 % Sodium Chloride 1,000 ML 150 ML IVCONT (06:26)
[2021-03-08 06:39] LABS: Alanine Aminotransferase 33 U/L (0-31); Albumin Level 3.3 g/dL (3.5-5.0); Alkaline Phosphatase 38 U/L (39-117); Anion Gap 11 (12-20); Aspartate Amino Transferase 20 U/L (5-31); Bilirubin Total 0.8 mg/dL (0.0-1.0); Blood Urea Nitrogen 3 mg/dL (9-16); Carbon Dioxide 19 mmol/L (22-29); Chloride 109 mmol/L (96-108); Creatinine Clr Calc Pharmacy 130.1; Estimated Glomerular Filt Rate > 60; Glucose Fasting 99 mg/dL (60-99); Potassium 3.3 mmol/L (3.3-5.1); Sodium 136 mmol/L (135-145); Total Protein 5.6 g/dL (6.5-8.0)
[2021-03-08] MEDS: Labetalol HCL 100 MG TABLET PO ×2 (07:09→16:08)
[2021-03-08] MEDS: Famotidine/PF 20 MG/2 ML VIAL IVPUSH ×2 (07:09→19:32)
[2021-03-08 07:49] LABS: Glucose, Whole Blood 104 mg/dL (60-115)
[2021-03-08] MEDS: ondansetron HCL 4 MG/2 ML VIAL IVPUSH ×2 (10:30→19:32)
--- NOTE | 2021-03-08 11:06 | PM.GYNPNOP ---
DIRECTOR OF REAL ESTATE - Subjective Subjective Date of Service: 03/08/21 Interval history: The patient is doing well , nausea and vomiting has improved, no vomiting since yesterday evening. The patient tolerated p.o. diet this morning without any nausea and vomiting. No vaginal bleeding or pelvic cramping On Zofran Phenergan, Reglan IV Labetalol 100 p.o. b.i.d. Metformin 500 mg p.o. q.h.s. 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 Vitals Vital signs: Temp Pulse Resp BP Pulse Ox 98.1 F 84 18 119/55 L 99 03/08/21 07:41 03/08/21 07:41 03/08/21 07:41 03/08/21 07:41 03/08/21 07:41 BMI result Body Mass Index 33.4 Abdomen Auscultation/Inspection/Palpation: Non-distended and No tenderness DIRECTOR OF REAL ESTATE - Prog Note: Results Labs CBC & Chem 7: 03/08/21 05:55 03/08/21 05:55 Labs: Laboratory Results - last 24 hr 03/07/21 03/07/21 03/07/21 12:55 15:36 19:59 WBC RBC Hgb Hct MCV MCH MCHC RDW Plt Count MPV Immature Gran % (Auto) Neut % (Auto) Lymph % (Auto) [place] % (Auto) Eos % (Auto) Baso % (Auto) Lymph # (Auto) [place] # (Auto) Eos # (Auto) Baso # (Auto) Abs Immat Gran (auto) Absolute Neuts (auto) Absolute Nucleated RBC Nucleated RBC % (auto) Sodium Potassium Chloride Carbon Dioxide Anion Gap BUN Creatinine Estim Creat Clear Calc Estimated GFR POC Glucose 131 H 98 110 Fasting Glucose Calcium Magnesium Total Bilirubin AST ALT Alkaline Phosphatase Total Protein Albumin 03/08/21 03/08/21 03/08/21 05:55 05:55 07:03 WBC 8.1 RBC 3.44 L Hgb 10.3 L Hct 29.5 L MCV 85.8 MCH 29.9 MCHC 34.9 RDW 11.9 Plt Count 253 MPV 9.3 L Immature Gran % (Auto) 0.2 Neut % (Auto) 66.0 Lymph % (Auto) 21.6 [place] % (Auto) 11.7 H Eos % (Auto) 0.1 Baso % (Auto) 0.4 Lymph # (Auto) 1.7 [place] # (Auto) 0.9 Eos # (Auto) 0.0 Baso # (Auto) 0.0 Abs Immat Gran (auto) 0.02 Absolute Neuts (auto) 5.3 Absolute Nucleated RBC 0.000 Nucleated RBC % (auto) 0.0 Sodium 136 Potassium 3.3 Chloride 109 H Carbon Dioxide 19 L Anion Gap 11 L BUN 3 L Creatinine 0.59 Estim Creat Clear Calc 130.1 Estimated GFR > 60 POC Glucose 104 Fasting Glucose 99 Calcium 8.0 L Magnesium 2.0 Total Bilirubin 0.8 AST 20 ALT 33 H Alkaline Phosphatase 38 L Total Protein 5.6 L Albumin 3.3 L DIRECTOR OF REAL ESTATE - A/P (1) Hypertension affecting in first trimester: Status: Acute Assessment and Plan: Will Keep and discharge on labetalol 100 mg p.o. b.i.d. (2) Hyperemesis arising during : Status: Acute Assessment and Plan: Hyperemesis gravidarum, has improved, will consider discharge this afternoon on p.o. antiemetics if the patient keeps on tolerating p.o. diet brought the day (3) Diabetes in undelivered : Status: Acute Assessment and Plan: Keep on metformin 500 mg p.o. q.h.s., needs to check her blood sugars fasting and 2 hour postprandial blood sugar x3 a day and follow-up in the office in the coming few days, will adjust metformin dose if needed. (4) First trimester bleeding: Status: Acute Assessment and Plan: 1st trimester bleeding, resolved-SAB warnings given to patient, she is to call in case of vaginal bleeding or pelvic cramping. vitamin 1 tablet p.o. q.d. 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
--- NOTE | 2021-03-08 15:53 | HO.PM.IMPN ---
Subjective Subjective Date of Service: 03/08/21 Interval History: Markedly improved however some nausea around lunchtime. No abdominal pain Review of Systems Denies chest pain Denies shortness of breath admits to ongoing nausea and vomiting without diarrhea Physical Exam Vital Signs: Vital Signs: Last Vital Signs Temp 98.8 F 03/08/21 15:20 Pulse 70 03/08/21 15:20 Resp 18 03/08/21 15:20 BP 148/88 H 03/08/21 15:20 Pulse Ox 100 03/08/21 15:20 BMI result Body Mass Index 33.4 Const: Other: ill-appearing female no acute distress HENMT: Other: mucous membranes dry, oropharynx clear Resp: Other: clear to auscultation bilaterally; no rales rhonchi or wheezes Cardio: Other: no S4; positive S1-S2; no S3 murmurs rubs or gallops GI: Other: soft nontender nondistended with normoactive bowel sounds x4 quadrants Neuro: Other: cranial nerves 2-12 are grossly intact as tested; motor is 5/5 all extremity; sensation intact; cognition appropriate Extrem: Other: no edema bilaterally Objective Data Active Medications Acetaminophen (Acetaminophen 325 Mg Tablet) 650 mg PO Q6H PRN PRN Reason: Pain, Mild (Pain Scale 1-3) Last Admin: 03/07/21 09:31 Dose: 650 mg Documented by: COTEMA Famotidine (Famotidine/Pf 20 Mg/2 Ml Vial) 20 mg IVPUSH BID [facility] Last Admin: 03/08/21 07:09 Dose: 20 mg Documented by: KATLYN Ceftriaxone Sodium 1 gm/ (Sodium Chloride) 50 mls @ 100 mls/hr IV Q24H [facility] Last Infusion: 03/07/21 19:31 Dose: 0 mls/hr Documented by: TUMASY Sodium Chloride (Ns) 1,000 mls @ 150 mls/hr IVCONT .Q6H40M [facility] Last Admin: 03/08/21 14:49 Dose: Not Given Documented by: KATLYN Non-Admin Reason: IV Running Promethazine HCl 6.25 mg/ (Sodium Chloride) 50.25 mls @ 201 mls/hr IV Q6H PRN PRN Reason: nausea and vomiting Last Infusion: 03/08/21 15:04 Dose: 0 mls/hr Documented by: KATLYN Labetalol HCl (Labetalol Hcl 100 Mg Tablet) 100 mg PO BID@0900,1700 [facility] Last Admin: 03/08/21 07:09 Dose: 100 mg Documented by: KATLYN Metformin HCl (Metformin Hcl 500 Mg Tablet) 500 mg PO BEDTIME [facility] Last Admin: 03/07/21 20:43 Dose: 500 mg Documented by: FRANSISCO Metoclopramide HCl (Metoclopramide Hcl 10 Mg/2 Ml Vial) 10 mg IVPUSH Q6H PRN PRN Reason: Nausea and Vomiting Last Admin: 03/08/21 11:39 Dose: 10 mg Documented by: KATLYN Ondansetron HCl (Ondansetron Hcl 4 Mg/2 Ml Vial) 4 mg IVPUSH Q8H PRN PRN Reason: Nausea and Vomiting Last Admin: 03/08/21 10:30 Dose: 4 mg Documented by: KATLYN Sodium Chloride (0.9 % Sodium Chloride Flush 3 Ml Syringe) 3 ml IVFLUSH QSHIFT [facility] Last Admin: 03/08/21 14:39 Dose: Not Given Documented by: KATLYN Non-Admin Reason: IV Running Labs CBC & Chem 7: 03/08/21 05:55 03/08/21 05:55 Labs: Laboratory Results - last 24 hr 03/07/21 03/07/21 03/08/21 15:36 19:59 05:55 MCV 85.8 MCH 29.9 MCHC 34.9 RDW 11.9 Plt Count 253 MPV 9.3 L Immature Gran % (Auto) 0.2 Neut % (Auto) 66.0 Lymph % (Auto) 21.6 [place] % (Auto) 11.7 H Eos % (Auto) 0.1 Baso % (Auto) 0.4 Lymph # (Auto) 1.7 [place] # (Auto) 0.9 Eos # (Auto) 0.0 Baso # (Auto) 0.0 Abs Immat Gran (auto) 0.02 Absolute Neuts (auto) 5.3 Absolute Nucleated RBC 0.000 Nucleated RBC % (auto) 0.0 Anion Gap Estim Creat Clear Calc Estimated GFR POC Glucose 98 110 Fasting Glucose Calcium Magnesium Total Bilirubin AST ALT Alkaline Phosphatase Total Protein Albumin 03/08/21 03/08/21 05:55 07:03 MCV MCH MCHC RDW Plt Count MPV Immature Gran % (Auto) Neut % (Auto) Lymph % (Auto) [place] % (Auto) Eos % (Auto) Baso % (Auto) Lymph # (Auto) [place] # (Auto) Eos # (Auto) Baso # (Auto) Abs Immat Gran (auto) Absolute Neuts (auto) Absolute Nucleated RBC Nucleated RBC % (auto) Anion Gap 11 L Estim Creat Clear Calc 130.1 Estimated GFR > 60 POC Glucose 104 Fasting Glucose 99 Calcium 8.0 L Magnesium 2.0 Total Bilirubin 0.8 AST 20 ALT 33 H Alkaline Phosphatase 38 L Total Protein 5.6 L Albumin 3.3 L Microbiology Microbiology Results: Microbiology 03/05/21 21:37 Blood Culture - Preliminary Blood - Venous No growth after 48 hours. 03/05/21 18:58 Blood Culture - Preliminary Blood - Venous No growth after 48 hours. Assessment and Plan (1) Hypertension affecting in first trimester: Status: Acute (2) Hyperemesis arising during : Status: Acute Assessment and Plan: 35-year-old female 10 weeks presents with intractable vomiting over the last week that is not responding to outpatient therapies. Also complains of dysuric symptoms over the last couple days with notable blood in urine today. States history of marijuana use, however when and news of arrive she she limited her marijuana use to only small amounts in the morning to help with the nausea which she states has been present since conception. Much improved since admission however not tolerating full meals 1. Hyperemesis Gravidarum Improved today...small amounts po Continue IV fluids with normal saline at 150 an hour; Zofran p.r.n. Antiemetic regimen as per If able to tolerate dinner....may D/C. Likely am discharge. 2. Dysuria with active urine sediment Discussed with Dr Alcantar....switch to Macrobid x 5days 3. HTN Started on Labetalol Follow BP's and adjust as indicated 4, DM(gestational) Started on Metformin by Dr Gonzáles. Follow PP sugars x 24hrs. Full code Sharif Poon Stroke Does the patient have a stroke diagnosis?: No VTE Prior VTE?: No VTE Risk Level:: Medical - low VTE Device Contraindication: N/A - Device Ordered VTE Drug Contraindication: Treatment Not Indicated
[2021-03-08 16:37] LABS: Glucose, Whole Blood 111 mg/dL (60-115)
[2021-03-08] MEDS: cefTRIAXone sodium 1 GM in 0.9 % Sodium Chloride 50 ML IV (19:26)
[2021-03-08] MEDS: metFORMIN HCl 500 MG TABLET PO (19:32)
[2021-03-08] MEDS: 0.9 % Sodium Chloride Flush 3 ML SYRINGE IVFLUSH (19:32)
[2021-03-08 20:45] LABS: Glucose, Whole Blood 99 mg/dL (60-115)
[2021-03-09] MEDS: Metoclopramide HCl 10 MG/2 ML VIAL IVPUSH (01:10)
[2021-03-09 04:00] VITALS: BP 129/71; PULSE 81; RESP 18; TEMP 36.7; O2SAT 100
[2021-03-09 06:22] LABS: MANUAL DIFF FLAG NO
[2021-03-09 06:36] LABS: Basophils Percent Auto 0.6 % (0-2); Eosinophils Percent Auto 0.3 % (0-4); Hematocrit 30.7 % (37.0-47.0); Hemoglobin 10.8 g/dl (12.0-16.0); Imm Gran Abs Auto 0.01 X10*3/uL (0.00-0.03); Imm Gran Pct Auto 0.1 % (0.0-0.4); Lymphocytes Absolute Auto 2.2 X10*3/uL (1.2-4.9); Lymphocytes Percent Auto 30.6 % (20-40); Mean Corpuscular HGB Conc 35.2 g/dl (31.0-35.0); Mean Corpuscular Volume 85.3 fL (80.0-98.0); Mean Platelet Volume 9.3 fL (9.4-12.3); Monocytes Absolute Auto 0.9 X10*3/uL (0.1-1.2); Monocytes Percent Auto 12.2 % (2-11); Neutrophils Percent Auto 56.2 % (45-73); Platelet Count 270 X10*3/uL (160-400); Red Cell Distribution Width 11.8 % (11.0-16.0); White Blood Count 7.1 X10*3/uL (4.8-10.8)
[2021-03-09 07:04] LABS: Alanine Aminotransferase 35 U/L (0-31); Albumin Level 3.2 g/dL (3.5-5.0); Alkaline Phosphatase 37 U/L (39-117); Anion Gap 10 (12-20); Aspartate Amino Transferase 20 U/L (5-31); Bilirubin Total 0.9 mg/dL (0.0-1.0); Blood Urea Nitrogen 3 mg/dL (9-16); Calcium 8.2 mg/dL (8.4-10.2); Carbon Dioxide 22 mmol/L (22-29); Chloride 107 mmol/L (96-108); Creatinine Clr Calc Pharmacy 125.9; Estimated Glomerular Filt Rate > 60; Glucose Fasting 87 mg/dL (60-99); Potassium 3.2 mmol/L (3.3-5.1); Sodium 136 mmol/L (135-145); Total Protein 5.5 g/dL (6.5-8.0)
[2021-03-09 07:34] VITALS: BP 137/83; PULSE 67; RESP 18; TEMP 36.5; O2SAT 98
[2021-03-09 08:05] LABS: Glucose, Whole Blood 83 mg/dL (60-115)
[2021-03-09] MEDS: Famotidine/PF 20 MG/2 ML VIAL IVPUSH (08:28)
[2021-03-09] MEDS: ondansetron HCL 4 MG/2 ML VIAL IVPUSH (08:28)
[2021-03-09] MEDS: Labetalol HCL 100 MG TABLET PO (08:28)
[2021-03-09] MEDS: 0.9 % Sodium Chloride Flush 3 ML SYRINGE IVFLUSH (08:29)
--- NOTE | 2021-03-09 09:36 | MHC.CLN ---
F/U NAUSEA IMPROVED. STARTED METFORMIN 500 MG EACH EVENING. POC GLUCOSE 03/08,15 REVIEWED, 83-111. FASTING GLUCOSE 03/09=87. 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 WILL CHANGE DIET TO DIABETIC 2000 KCAL. HIGHER CALORIE DIET TO ALLOW FOR MORE FOOD CHOICES.
--- NOTE | 2021-03-09 12:01 | P.DS_ITS ---
DS: Providers Provider Date of Service: 03/09/21 Date of admission: 03/05/21 18:34 Primary care physician: Valerie Patel MD Consults: 03/05/21 18:38 Consult to Obstetrics / Gynecology Routine Consulting Provider: Mando Mckee Reason for consultation: hyperemesis gravidarum Has provider been notified: Yes DS: Diagnosis Discharge Diagnosis (1) Hypertension affecting in first trimester: Status: Acute (2) Hyperemesis arising during : Status: Acute DS: Summary Hospital Course Hospital Course: . 35-year-old female presented to emergency room at 10 weeks and 4 days of gestation complaining of nausea and vomiting intractable responding to vitamin B6. The patient has a history of marijuana smoking, that was stopped after diagnosis of . The patient did have mild vaginal bleeding and cramping but subsided in the emergency room. CBC within normal limits, lactic acid negative, UA is positive for leukocyte esterase, wbc's and bacteria. AST ALT essentially normal blood sugar 164. The patient received multiple doses of Benadryl, Reglan, Zofran, Compazine; still not able to tolerate p.o. diet. Pelvic ultrasound showed an intrauterine gestation at 10 weeks and 4 days of gestation with subchorionic hematoma Hospital course Patient was admitted to [facility], given IV fluids and antiemetics were alternated. Sugars were monitored by Dr. Mckee who added metformin 500 mg at HS. Point cares responded appropriately. She was persistently hypertensive, and was started on labetalol 100 mg p.o. b.i.d. which will be maintained and upon discharge she. Urine demonstrated active sediment for which she was started on ceftriaxone; she will be discharged on a 5 day course of Macrobid as per Dr. Mckee. She states she has an appointment with [facility] OBGYN as a high risk . She will be discharged to follow-up as scheduled Time Spent with Patient Time attestation: Total time spent providing and/or coordinating discharge services: Discharge coordination time: Greater than 30 minutes Quality: Stroke Does the patient have a stroke diagnosis?: No Physical Exam Vital Signs: Vital Signs: Last Vital Signs Temp 97.7 F 03/09/21 07:34 Pulse 67 03/09/21 07:34 Resp 18 03/09/21 07:34 BP 137/83 03/09/21 07:34 Pulse Ox 98 03/09/21 07:34 BMI result Body Mass Index 33.4 Const: Other: ill-appearing female no acute distress HENMT: Other: mucous membranes dry, oropharynx clear Resp: Other: clear to auscultation bilaterally; no rales rhonchi or wheezes Cardio: Other: no S4; positive S1-S2; no S3 murmurs rubs or gallops GI: Other: soft nontender nondistended with normoactive bowel sounds x4 quadrants Neuro: Other: cranial nerves 2-12 are grossly intact as tested; motor is 5/5 all extremity; sensation intact; cognition appropriate Extrem: Other: no edema bilaterally DS: Data Data Completed and Pending Labs on day of discharge: Laboratory Results - last 24 hr 03/08/21 03/08/21 03/09/21 16:08 20:22 06:07 WBC RBC Hgb Hct MCV MCH MCHC RDW Plt Count MPV Immature Gran % (Auto) Neut % (Auto) Lymph % (Auto) [place] % (Auto) Eos % (Auto) Baso % (Auto) Lymph # (Auto) [place] # (Auto) Eos # (Auto) Baso # (Auto) Abs Immat Gran (auto) Absolute Neuts (auto) Absolute Nucleated RBC Nucleated RBC % (auto) Sodium 136 Potassium 3.2 L Chloride 107 Carbon Dioxide 22 Anion Gap 10 L BUN 3 L Creatinine 0.61 Estim Creat Clear Calc 125.9 Estimated GFR > 60 POC Glucose 111 99 Fasting Glucose 87 Calcium 8.2 L Total Bilirubin 0.9 AST 20 ALT 35 H Alkaline Phosphatase 37 L Total Protein 5.5 L Albumin 3.2 L 03/09/21 03/09/21 06:07 07:33 WBC 7.1 RBC 3.60 L Hgb 10.8 L Hct 30.7 L MCV 85.3 MCH 30.0 MCHC 35.2 H RDW 11.8 Plt Count 270 MPV 9.3 L Immature Gran % (Auto) 0.1 Neut % (Auto) 56.2 Lymph % (Auto) 30.6 [place] % (Auto) 12.2 H Eos % (Auto) 0.3 Baso % (Auto) 0.6 Lymph # (Auto) 2.2 [place] # (Auto) 0.9 Eos # (Auto) 0.0 Baso # (Auto) 0.0 Abs Immat Gran (auto) 0.01 Absolute Neuts (auto) 4.0 Absolute Nucleated RBC 0.000 Nucleated RBC % (auto) 0.0 Sodium Potassium Chloride Carbon Dioxide Anion Gap BUN Creatinine Estim Creat Clear Calc Estimated GFR POC Glucose 83 Fasting Glucose Calcium Total Bilirubin AST ALT Alkaline Phosphatase Total Protein Albumin Preliminary micro results at discharge 03/05/21 21:37 Blood Culture - Preliminary Blood - Venous No growth after 48 hours. 03/05/21 18:58 Blood Culture - Preliminary Blood - Venous No growth after 48 hours. Discharge Plan Discharge Patient Disposition: Home, Self-Care Discharge Diagnosis: Hyperemesis gravidarum Referrals: Valerie Patel MD [Primary Care Provider] - 1 Week Discharge Medications: New ondansetron 4 mg tablet,disintegrating 4 mg PO Q8H PRN (Reason: nausea and vomiting) Qty: 20 RF: 0 promethazine 12.5 mg tablet 12.5 mg PO Q6H PRN (Reason: nausea and vomiting) Qty: 20 RF: 0 metformin 500 mg Tablet 500 mg PO BEDTIME Qty: 30 RF: 0 labetalol 100 mg Tablet 100 mg PO BID@0900,1700 Qty: 60 RF: 0 Continued Unisom (doxylamine) 25 mg tablet 25 mg PO BEDTIME PRN (Reason: sleep) Qty: 30 RF: 3 pyridoxine (vitamin B6) [Vitamin B-6] 25 mg tablet 25 mg PO TID PRN (Reason: nausea and vomiting) Qty: 90 RF: 3 Gummies 400 mcg-35 mg- 25 mg-5 mg tablet,chewable 1 tab PO DAILY Qty: 30 RF: 11 Discharge Orders: Discharge Order (Routine); Ordered 03/09/21 Ordered By: Ab Denton Diet: advance to usual diet Activity on Discharge: As tolerated Stand Alone Forms: Patient Portal Discharge page, Work/School Release Activity Restrictions/Additional Instructions: return to ED for any worsening symptoms or concerns please fill your prescription Care Plan Goals: Alternate Zofran and Phenergan for nausea; Health Concerns: Refrain from marijuana use Plan of Treatment: Follow-up [facility] high risk OBGYN Assessment: As above Patient Instructions: Hyperemesis Gravidarum (ED)
== END 2021-03-09 12:09 | disposition home or self-care (01) | DRG 566 ==
LOC: HO.ED 18:52 → HO.EDOVER 18:59 → HO.S3 03-06 11:35
PROVIDERS: Emergency Medicine; Admitting Provider Hospitalist; Emergency Provider Emergency Medicine; PCP Internal Medicine; Visit Provider Hospitalist
DX: O24.415 Gestational diabetes mellitus in pregnancy, controlled by oral hypoglycemic drugs (principal); O16.1 Unspecified maternal hypertension, first trimester; O23.41 Unspecified infection of urinary tract in pregnancy, first trimester; O21.0 Mild hyperemesis gravidarum; N39.0 Urinary tract infection, site not specified; O46.91 Antepartum hemorrhage, unspecified, first trimester; Z20.822 Contact with and (suspected) exposure to COVID-19; Z3A.10 10 weeks gestation of pregnancy; Z88.5 Allergy status to narcotic agent; Z79.84 Long term (current) use of oral hypoglycemic drugs; Z79.899 Other long term (current) drug therapy
CPT/HCPCS: 36415; 76801; 80048; 80053; 80076; 80143; 81001; 82947; 83605; 83690; 83735; 84443; 84702; 85025; 86900; 86901; 87040; 87086; 87635; 96361; 96365; 96375; 99285; J0696; J1200; J2405; J2550; J2765

== ENCOUNTER 2021-03-15 20:06 | Emergency (ER) | payer MEDICAID, SELFPAY | END 2021-03-15 20:49 | disposition left against medical advice (07) | LOC: HO.ED 20:48 | PROVIDERS: Emergency Provider Emergency Medicine; PCP Internal Medicine | DX: R11.10 Vomiting, unspecified (principal) ==

== ENCOUNTER 2021-03-18 20:24 | Emergency (ER) | payer MEDICAID, SELFPAY ==
--- NOTE | ~2021-03-18 | US_ITS ---
EXAMINATION: US OBSTETRICAL ULTRASOUND CLINICAL INFORMATION: Vaginal bleeding COMPARISON: None. LMP: 12/19/2020. Gestational age by maternal dates is 12 weeks 5 days. Estimated date of delivery by maternal dates is 09/25/2021. TECHNIQUE: Transabdominal scanning was performed FINDINGS: There is a single intrauterine gestational sac with visible yolk sac, embryo/fetus, and cardiac activity. There is no significant subchorionic hemorrhage or hematoma. HR: 167 beats per minute. CRL (crown rump length): 6.14 cm (12 weeks 5 days +/- 4 days). CASEY (estimated date of delivery): 09/25/2021 +/- 4 days. Subchorionic bleed seen previously cannot be appreciated on the current study. MATERNAL ADNEXA: The right maternal ovary measures 3.9 x 1.9 x 3.5 cm. A corpus luteum cyst is present The left maternal ovary measures 3.8 x 1.2 x 2.8 cm. There is no significant maternal adnexal mass. No maternal pelvic ascites. US/US OB <= 14 weeks fetus IMPRESSION: 1. Single intrauterine gestation with ultrasound gestational age of 12 weeks 5 days +/- 4 days. 2. Estimated date of delivery is 09/25/2021 +/- 4 days. 3. No worrisome maternal adnexal mass or pelvic ascites.
[2021-03-18 21:03] LABS: MANUAL DIFF FLAG NO
[2021-03-18 21:06] VITALS: BP 113/68; PULSE 100; RESP 16; TEMP 36.6; O2SAT 99; BMI 30.2
[2021-03-18 21:07] LABS: Basophils Percent Auto 0.4 % (0-2); Eosinophils Absolute Auto 0.1 X10*3/uL (0.0-0.4); Eosinophils Percent Auto 1.2 % (0-4); Hematocrit 35.8 % (37.0-47.0); Hemoglobin 12.2 g/dl (12.0-16.0); Imm Gran Abs Auto 0.03 X10*3/uL (0.00-0.03); Imm Gran Pct Auto 0.4 % (0.0-0.4); Lymphocytes Absolute Auto 1.8 X10*3/uL (1.2-4.9); Lymphocytes Percent Auto 22.9 % (20-40); Mean Corpuscular HGB Conc 34.1 g/dl (31.0-35.0); Mean Platelet Volume 8.4 fL (9.4-12.3); Monocytes Absolute Auto 0.7 X10*3/uL (0.1-1.2); Monocytes Percent Auto 9.5 % (2-11); Neutrophils Absolute Auto 5.1 x10*3/uL (2.0-8.3); Neutrophils Percent Auto 65.6 % (45-73); Platelet Count 376 X10*3/uL (160-400); Red Blood Count 4.07 X10*6/uL (4.20-5.50); Red Cell Distribution Width 12.6 % (11.0-16.0); White Blood Count 7.8 X10*3/uL (4.8-10.8)
[2021-03-18 21:19] LABS: Alanine Aminotransferase 46 U/L (0-31); Albumin Level 3.6 g/dL (3.5-5.0); Alkaline Phosphatase 47 U/L (39-117); Anion Gap 12 (12-20); Aspartate Amino Transferase 24 U/L (5-31); Bilirubin Total 0.6 mg/dL (0.0-1.0); Blood Urea Nitrogen 3 mg/dL (9-16); Calcium 9.2 mg/dL (8.4-10.2); Carbon Dioxide 23 mmol/L (22-29); Chloride 104 mmol/L (96-108); Creatinine Clr Calc Pharmacy 101.2; Estimated Glomerular Filt Rate > 60; Glucose Random 99 mg/dL (60-115); Potassium 3.5 mmol/L (3.3-5.1); Sodium 135 mmol/L (135-145); Total Protein 6.3 g/dL (6.5-8.0)
[2021-03-18 21:27] LABS: Appearance Urine CLEAR; Color Urine YELLOW; Glucose Urine UA NEG (NEG); Leukocyte Esterase Urine 2+ (NEG); Nitrite Urine NEG (NEG); PH 6.5 (5.0-8.0); Specific Gravity - Urine 1.025 (1.005-1.025); UACC Culture Trigger YES; Urine Blood 3+ (NEG); Urine Ketones 5 MG/DL (NEG); Urine Protein 1+ MG/DL (NEG-TRACE)
[2021-03-18 21:37] LABS: UPreg QC Valid YES; Urine Pregnancy POSITIVE (NEGATIVE)
[2021-03-18 21:43] LABS: Bacteria Urine 2+ /LPF; Mucus Urine 2+ /LPF; RBC Urine 50-75 /HPF (0); Squamous Epithelial Cell Urine 2+ /LPF
--- NOTE | 2021-03-18 22:40 | ED_ITS ---
HPI - Female Genitourinary General Chief complaint: Urogenital-Female Stated complaint: cramps,spotting edc 09/26 Time Seen by Provider: 03/18/21 22:40 Source: patient Mode of arrival: ambulatory Limitations: no limitations History of Present Illness HPI Narrative: Patient 13 weeks was seen here on 03/05 for vaginal bleeding at that time she had small subchorionic bleed and questionable UTI started on antibiotics urine culture showed contaminant urine comes here now for spotting just prior to arrival with lower abdominal cramps patient was admitted here on 03/05/11 for diabetes hypertension and marijuana induced vomiting Related Data Previous Rx's Medication Instructions Recorded PNV 153-FA 400 mcg-om3 35 mg-dha 1 tab PO DAILY #30 tab 03/04/21 25 mg-epa 5 mg-fish oil chew tablet ( Gummies) ondansetron 4 mg disintegrating 4 mg PO Q8H PRN #20 tab 03/05/21 tablet labetalol 100 mg tablet 100 mg PO BID@0900,1700 #60 tab 03/09/21 metformin 500 mg tablet 500 mg PO BEDTIME #30 tab 03/09/21 promethazine 12.5 mg tablet 12.5 mg PO Q6H PRN #20 tab 03/09/21 blood sugar diagnostic (FreeStyle #100 ea 03/10/21 Lite Strips) blood-glucose meter (FreeStyle #1 ea 03/10/21 [place] Lite) lancets 28 gauge (FreeStyle #100 ea 03/10/21 Lancets) doxylamine succinate 25 mg tablet 25 mg PO BEDTIME 30 Days #30 tab 03/11/21 (Unisom (doxylamine)) pyridoxine (vitamin B6) 25 mg 25 mg PO TID 30 Days #90 tab 03/11/21 tablet Allergies Allergy/AdvReac Type Severity Reaction Status Date / Time oxycodone [From PERCOCET] Allergy Unknown RASH Verified 03/04/21 08:46 Review of Systems Review of Systems: Yes all other systems are reviewed and are negative PMFSH Past Medical History Medical History COVID-19 Surgical History Hx of appendectomy Social History Social History Household Members: Significant Other Housing: Apartment Do you presently have visiting nurse or other home services: No Alcohol intake: never Patient Tobacco Use Status: Never used Tobacco Substance Use Type: Marijuana Advance Directives: No Advance Directives Information Provided: Yes Patient : Yes service: No Current occupational status: unemployed Physical Exam Vital Signs: Vital Signs: Last Vital Signs Temp 98.5 F 03/19/21 00:00 Pulse 107 H 03/19/21 00:00 Resp 16 03/19/21 00:00 BP 122/83 03/19/21 00:00 Pulse Ox 100 03/19/21 00:00 BMI result Body Mass Index 30.2 Appearance: Alert. Oriented X3. No acute distress. Eyes: PERRLA, No Nystagmus ENT: Pharynx normal. Oral Mucosa moist Neck: Normal inspection. Neck supple. CVS: Normal heart rate and rhythm. Pulses normal. Respiratory: No respiratory distress. Equal air entry bilateral, no wheezing/rales/rhonchi Abdomen: Soft, mild deep tenderness suprapubic, Bowel sounds are present, no mass palpable, no CVA tenderness Skin: Skin warm and dry. Normal skin color. Normal skin turgor. Extremities: No lower extremity edema. No calf tenderness Neuro: Oriented X 3. MDM - Female Genitourinary MDM Narrative Medical decision making narrative: Patient ultrasound negative for any significant bleeding normal IUP will discharge patient, patient did not have any active bleeding in the ER Medical Records Attestation: I reviewed the patient's medical records. Lab Data Attestation: I reviewed the patient's lab results. Result diagrams: 03/18/21 20:51 03/18/21 20:51 Labs: Lab Results 03/18/21 03/18/21 03/18/21 Range/Units 20:51 20:51 21:14 WBC 7.8 (4.8-10.8) X10*3/uL RBC 4.07 L (4.20-5.50) X10*6/uL Hgb 12.2 (12.0-16.0) g/dl Hct 35.8 L (37.0-47.0) % MCV 88.0 (80.0-98.0) fL MCH 30.0 (27.0-33.0) pg MCHC 34.1 (31.0-35.0) g/dl RDW 12.6 (11.0-16.0) % Plt Count 376 D (160-400) X10*3/uL MPV 8.4 L (9.4-12.3) fL Immature Gran % (Auto) 0.4 (0.0-0.4) % Neut % (Auto) 65.6 (45-73) % Lymph % (Auto) 22.9 (20-40) % [place] % (Auto) 9.5 (2-11) % Eos % (Auto) 1.2 (0-4) % Baso % (Auto) 0.4 (0-2) % Lymph # (Auto) 1.8 (1.2-4.9) X10*3/uL [place] # (Auto) 0.7 (0.1-1.2) X10*3/uL Eos # (Auto) 0.1 (0.0-0.4) X10*3/uL Baso # (Auto) 0.0 (0.0-0.2) X10*3/uL Abs Immat Gran (auto) 0.03 (0.00-0.03) X10*3/uL Absolute Neuts (auto) 5.1 (2.0-8.3) x10*3/uL Absolute Nucleated RBC 0.000 (0.0-0.012) X10*3/uL Nucleated RBC % (auto) 0.0 (0.0-0.2) /100WBC Sodium 135 (135-145) mmol/L Potassium 3.5 (3.3-5.1) mmol/L Chloride 104 (96-108) mmol/L Carbon Dioxide 23 (22-29) mmol/L Anion Gap 12 (12-20) BUN 3 L (9-16) mg/dL Creatinine 0.72 (0.5-1.4) mg/dL Estim Creat Clear Calc 101.2 Estimated GFR > 60 Random Glucose 99 (60-115) mg/dL Calcium 9.2 D (8.4-10.2) mg/dL Total Bilirubin 0.6 (0.0-1.0) mg/dL AST 24 (5-31) U/L ALT 46 H (0-31) U/L Alkaline Phosphatase 47 D (39-117) U/L Total Protein 6.3 L (6.5-8.0) g/dL Albumin 3.6 (3.5-5.0) g/dL Beta HCG, Quant 71533 mIU/mL Urine Color YELLOW Urine Appearance CLEAR Urine pH 6.5 (5.0-8.0) Ur Specific [place] 1.025 (1.005-1.025) Urine Protein 1+ H (NEG-TRACE) MG/DL Urine Glucose (UA) NEG (NEG) MG/DL Urine Ketones 5 (NEG) MG/DL Urine Blood 3+ H (NEG) Urine Nitrite NEG (NEG) Ur Leukocyte Esterase 2+ H (NEG) Urine RBC 50-75 H (0) /HPF Urine WBC 10-14 H (0-4) /HPF Ur Squamous Epith Cells 2+ /LPF Urine Bacteria 2+ /LPF Urine Mucus 2+ /LPF Urine Test (NEGATIVE) 03/18/21 Range/Units 21:14 WBC (4.8-10.8) X10*3/uL RBC (4.20-5.50) X10*6/uL Hgb (12.0-16.0) g/dl Hct (37.0-47.0) % MCV (80.0-98.0) fL MCH (27.0-33.0) pg MCHC (31.0-35.0) g/dl RDW (11.0-16.0) % Plt Count (160-400) X10*3/uL MPV (9.4-12.3) fL Immature Gran % (Auto) (0.0-0.4) % Neut % (Auto) (45-73) % Lymph % (Auto) (20-40) % [place] % (Auto) (2-11) % Eos % (Auto) (0-4) % Baso % (Auto) (0-2) % Lymph # (Auto) (1.2-4.9) X10*3/uL [place] # (Auto) (0.1-1.2) X10*3/uL Eos # (Auto) (0.0-0.4) X10*3/uL Baso # (Auto) (0.0-0.2) X10*3/uL Abs Immat Gran (auto) (0.00-0.03) X10*3/uL Absolute Neuts (auto) (2.0-8.3) x10*3/uL Absolute Nucleated RBC (0.0-0.012) X10*3/uL Nucleated RBC % (auto) (0.0-0.2) /100WBC Sodium (135-145) mmol/L Potassium (3.3-5.1) mmol/L Chloride (96-108) mmol/L Carbon Dioxide (22-29) mmol/L Anion Gap (12-20) BUN (9-16) mg/dL Creatinine (0.5-1.4) mg/dL Estim Creat Clear Calc Estimated GFR Random Glucose (60-115) mg/dL Calcium (8.4-10.2) mg/dL Total Bilirubin (0.0-1.0) mg/dL AST (5-31) U/L ALT (0-31) U/L Alkaline Phosphatase (39-117) U/L Total Protein (6.5-8.0) g/dL Albumin (3.5-5.0) g/dL Beta HCG, Quant mIU/mL Urine Color Urine Appearance Urine pH (5.0-8.0) Ur Specific [place] (1.005-1.025) Urine Protein (NEG-TRACE) MG/DL Urine Glucose (UA) (NEG) MG/DL Urine Ketones (NEG) MG/DL Urine Blood (NEG) Urine Nitrite (NEG) Ur Leukocyte Esterase (NEG) Urine RBC (0) /HPF Urine WBC (0-4) /HPF Ur Squamous Epith Cells /LPF Urine Bacteria /LPF Urine Mucus /LPF Urine Test POSITIVE H (NEGATIVE) Discharge Plan Discharge Clinical Impression: , threatened Patient Disposition: Home, Self-Care Instructions: Threatened Miscarriage (ED) Additional Instructions: Follow-up with your OBG Report to ER if increased vaginal bleeding or pain, at this time the ultrasound showed normal Prescriptions: No Action (DME) blood-glucose meter [FreeStyle [place] Lite] Kit See Rx Instructions .MEDSUPPLY Qty: 1 RF: 0 (DME) lancets [FreeStyle Lancets] 28 gauge misc See Rx Instructions .MEDSUPPLY Qty: 100 RF: 8 (DME) FreeStyle Lite Strips Strip See Rx Instructions .MEDSUPPLY Qty: 100 RF: 8 Unisom (doxylamine) 25 mg tablet 25 mg PO BEDTIME 30 Days Qty: 30 RF: 3 pyridoxine (vitamin B6) 25 mg tablet 25 mg PO TID 30 Days Qty: 90 RF: 3 ondansetron 4 mg tablet,disintegrating 4 mg PO Q8H PRN (Reason: nausea and vomiting) Qty: 20 RF: 0 promethazine 12.5 mg tablet 12.5 mg PO Q6H PRN (Reason: nausea and vomiting) Qty: 20 RF: 0 metformin 500 mg Tablet 500 mg PO BEDTIME Qty: 30 RF: 0 labetalol 100 mg Tablet 100 mg PO BID@0900,1700 Qty: 60 RF: 0 Gummies 400 mcg-35 mg- 25 mg-5 mg tablet,chewable 1 tab PO DAILY Qty: 30 RF: 11 Interventions: ED Discharge Assessment Last Done: 03/19/21 01:02 Discharge Date/Time: 03/19/21 01:03
--- NOTE | 2021-03-18 22:47 | PC.NURSE ---
at bedside for primary eval. Plan for [place].
[2021-03-18 23:30] LABS: HCG Quantitative 92458 mIU/mL
[2021-03-19] VITALS: BP 122/83; PULSE 107; RESP 16; TEMP 36.9; O2SAT 100
== END 2021-03-19 01:03 | disposition home or self-care (01) ==
PROVIDERS: Emergency Provider Internal Medicine; PCP Internal Medicine
DX: O20.0 Threatened abortion (principal); Z3A.13 13 weeks gestation of pregnancy; R10.30 Lower abdominal pain, unspecified; O24.911 Unspecified diabetes mellitus in pregnancy, first trimester; O16.1 Unspecified maternal hypertension, first trimester
CPT/HCPCS: 36415; 76801; 80053; 81001; 81025; 84702; 85025; 87086; 99283; 99284

== ENCOUNTER 2021-03-23 14:08 | Outpatient (REF) | payer MEDICAID, SELFPAY ==
[2021-03-23 15:29] LABS: Hematocrit 37.3 % (37.0-47.0); Hemoglobin 12.8 g/dl (12.0-16.0); Mean Corpuscular HGB Conc 34.3 g/dl (31.0-35.0); Mean Corpuscular Hemoglobin 29.7 pg (27.0-33.0); Mean Corpuscular Volume 86.5 fL (80.0-98.0); Mean Platelet Volume 8.2 fL (9.4-12.3); Platelet Count 408 X10*3/uL (160-400); Red Blood Count 4.31 X10*6/uL (4.20-5.50); Red Cell Distribution Width 12.6 % (11.0-16.0); White Blood Count 6.1 X10*3/uL (4.8-10.8)
[2021-03-24 03:21] LABS: CT PCR NOT DETECTED (Not Detect.); NG PCR NOT DETECTED (Not Detect.)
[2021-03-24 05:11] LABS: Rubella IgG Antibody 6.86 Index
[2021-03-24 08:16] LABS: HBsAGNum1 0.37 S/CO (0.00-0.99); HIV AB/AG Nonreactive (Nonreactive); HIV Num 1 0.07 S/CO (0.00-0.99); Hepatitis B Surface Antigen Negative (Negative); ~HepC Num1 0.33 S/CO (0.00-0.79); ~Hepatitis C Antibody Nonreactive (Nonreactive)
[2021-03-24 15:23] LABS: Estimated Average Glucose 103 mg/dL; Hemoglobin A1c % 5.2 %
[2021-03-25 08:47] LABS: Syphilis Screen Nonreactive (Nonreactive)
[2021-03-29 21:46] LABS: Hemoglobin 12.9 g/dL (11.7-15.5); MCH 29.1 pg (27.0-33.0); MCV 85.8 fL (80.0-100.0); RBC 4.43 Million/uL (3.80-5.10); RDW 12.4 % (11.0-15.0)
[2021-04-02 15:17] LABS: CF Ethnicity HISPANIC; Cystic Fibrosis NEGATIVE (NEGATIVE)
== END 2021-03-23 14:09 | disposition home or self-care (01) ==
LOC: HO.LAB 14:08
PROVIDERS: PCP Internal Medicine; Visit Provider Obstetrics & Gynecology
DX: O24.919 Unspecified diabetes mellitus in pregnancy, unspecified trimester (principal); O16.1 Unspecified maternal hypertension, first trimester
CPT/HCPCS: 36415; 81220; 83020; 83036; 85014; 85018; 85027; 85041; 86762; 86780; 86787; 86803; 86850; 86900; 86901; 87340; 87389; 87491; 87591; 99212

== ENCOUNTER 2021-03-25 08:17 | Outpatient (REF) | payer MEDICAID, SELFPAY ==
--- NOTE | ~2021-03-25 | US_ITS ---
EXAMINATION: OBSTETRICAL ULTRASOUND, FIRST TRIMESTER HISTORY: 35-year-old at 13.5 weeks of gestation NT screening Chronic hypertension Type 2 diabetes COMPARISON: 03/18/2021 TECHNIQUE: Real time transabdominal imaging with color and M-mode Doppler. FINDINGS: A single, live IUP CRL of 69.2 mm c/w 13.2wks is noted. Heart Rate: 153 beats per minute. Normal yolk sac seen. NT was 1.7.mm. NB Present The embryo appears sonographically wnl for this GA. Both maternal ovaries are seen and appear normal. GESTATIONAL AGE: 1. Established GA: 13.5 wks 2. GA from AUA: 13.2 wks ESTIMATED DATE OF DELIVERY: 1. Established CASEY: 09/25/2021 2. CASEY from AUA: 09/28/2021 US/US OB 1T nuc measure IMPRESSION: 1. A single live IUP 2. Size equals dates 3. NT of 1.7 mm MFM Consultation: I reviewed the ultrasound findings along with significance of NT measurement. The NT of less than 3mm is generally reassuring. However, the sensitivity for T21 detection is only 60%. I reviewed the availability of serum aneuploidy screening which includes cell-free DNA and placental protein based tests. I discussed the sensitivity, false-positive rate, and other limitations associated with each test. I also reviewed the availability of invasive diagnostic tests that are associated small but definite risk of miscarriage. We also reviewed the differences between screening tests and diagnostic tests. After our discussion, she opted for the First trimester screening that is based on cell-free DNA or non-invasive testing (NIPT). The result will be faxed to your office in approximately 7 days. She was unaware of the hypertension prior to . However she requires labetalol 100 mg by mouth twice a day to maintain her blood pressure below 140/90. She is also on baby aspirin q.d. for preeclampsia prophylaxis. She was also diagnosed with the gestational diabetes. She is not aware of her hemoglobin A1c. Her metformin has been increased to 1000 mg daily at bedtime. I reviewed the clinical consequences of elevated maternal serum glucose in . Patient will be transferring her obstetrical care to the [facility]. A follow up at 18 weeks for survey has been scheduled. Thank you very much for this referral. Total time 30 minutes. The time spent was devoted to counseling the patient about the disease and diagnosis, coordinating care including reviewing her records, pertinent lab data and studies, as well as discussing diagnostic evaluation and workup, plan therapeutic interventions and future disposition of care. This includes any additional research needed to obtain further information in formulating the plan of care of this patient. This note was generated with a voice recognition program. Please excuse any errors which may have been overlooked during my review of this note. Sometimes these errors may affect the content or meaning of a given sentence.
[2021-03-25 12:03] LABS: Estimated Average Glucose 103 mg/dL; Hemoglobin A1c % 5.2 %
[2021-03-25 12:14] LABS: Amphetamine Screen Urine Not Detected (Not Detect); Barbiturates, Urine Not Detected (Not Detect); Benzodiazepines Screen Urine Not Detected (Not Detect); Cannabinoid Screen Urine POSITIVE (Not Detect); Cocaine Screen Urine Not Detected (Not Detect); Fentanyl, urine POSITIVE (Not Detect); Opiate Screen Urine Not Detected (Not Detect); Phencyclidine Screen Urine Not Detected (Not Detect)
== END 2021-03-25 08:18 | disposition home or self-care (01) ==
LOC: HO.US 08:17
PROVIDERS: PCP Internal Medicine; Visit Provider Obstetrics & Gynecology
DX: O24.911 Unspecified diabetes mellitus in pregnancy, first trimester (principal); Z3A.13 13 weeks gestation of pregnancy
CPT/HCPCS: 76813; 80307; 83036; 87086

== ENCOUNTER 2021-03-28 09:06 | Outpatient (REF) | payer MEDICAID, SELFPAY ==
[2021-03-28 12:35] LABS: CT PCR NOT DETECTED (Not Detect.); NG PCR NOT DETECTED (Not Detect.)
== END 2021-03-28 09:07 | disposition home or self-care (01) ==
LOC: HO.LAB 09:06
PROVIDERS: PCP Obstetrics & Gynecology; Visit Provider Obstetrics & Gynecology
DX: Z11.3 Encounter for screening for infections with a predominantly sexual mode of transmission (principal); A64 Unspecified sexually transmitted disease
CPT/HCPCS: 87491; 87591

== ENCOUNTER → 2021-03-30 13:47 | Outpatient (BNVA) | payer MEDICAID, SELFPAY | PROVIDERS: Visit Provider Obstetrics & Gynecology | DX: O24.911 Unspecified diabetes mellitus in pregnancy, first trimester (principal); O16.1 Unspecified maternal hypertension, first trimester; Z3A.00 Weeks of gestation of pregnancy not specified | CPT/HCPCS: 99212 ==

== ENCOUNTER 2021-04-13 14:52 | Outpatient (REF) | payer MEDICAID, SELFPAY ==
--- NOTE | ~2021-04-13 | US_ITS ---
EXAMINATION: ULTRASOUND OB LIMITED CLINICAL INFORMATION: Cramping. COMPARISON: None. TECHNIQUE: Transabdominal ultrasound of the pelvis is performed. FINDINGS: There is a single live intrauterine fetus in breech presentation. heart rate is 163 bpm. The placenta is posterior. The external os of the cervix is patulous and likely open with fluid within the cervical/vagina canal. The cervical length is 4.4 cm. Both ovaries are visualized and appear unremarkable. There are small nabothian cysts in the cervix. There is no free fluid in the cul-de-sac. US/US OB limited IMPRESSION: Single live fetus in presentation. heart rate 163 bpm. The external os of the cervix is patulous and likely partially open with fluid visualized in the lower cervical and vaginal canal. There are nabothian cysts visualized in the cervix.
== END 2021-04-13 14:53 | disposition home or self-care (01) ==
LOC: HO.LAB 14:52
PROVIDERS: Visit Provider Obstetrics & Gynecology
DX: O24.919 Unspecified diabetes mellitus in pregnancy, unspecified trimester (principal); O16.1 Unspecified maternal hypertension, first trimester; O23.41 Unspecified infection of urinary tract in pregnancy, first trimester; N39.0 Urinary tract infection, site not specified
CPT/HCPCS: 76815; 81003; 87086; 99212

== ENCOUNTER 2021-04-14 14:46 | Outpatient (REF) | payer MEDICAID, SELFPAY ==
--- NOTE | ~2021-04-14 | US_ITS ---
EXAMINATION: PELVIC ULTRASOUND CLINICAL INFORMATION: Limited study to check cervical length. COMPARISON: OB ultrasound yesterday. TECHNIQUE: Endovaginal ultrasound was performed. FINDINGS: A viable fetus with a heart rate of 152 bpm was present. The cervix was open and dynamic measuring about 4.6 cm in length (image 30/52). Cervical funneling was present with protrusion of the amniotic membranes into the cervical os. US/US OB transvaginal IMPRESSION: Fetus with heartbeat of 152 bpm. Cervix is 4.6 cm in length with associated cervical funneling.
== END 2021-04-14 14:47 | disposition home or self-care (01) ==
LOC: HO.US 14:46
PROVIDERS: PCP Internal Medicine; Visit Provider Obstetrics & Gynecology
DX: Z34.90 Encounter for supervision of normal pregnancy, unspecified, unspecified trimester (principal)
CPT/HCPCS: 76817

== ENCOUNTER → 2021-04-28 14:26 | Outpatient (BNVA) | payer MEDICAID, SELFPAY | PROVIDERS: Visit Provider Obstetrics & Gynecology ==

== ENCOUNTER 2022-07-11 17:30 | Emergency (ER) | payer MEDICAID, SELFPAY ==
[2022-07-11 17:38] VITALS: BP 137/106; PULSE 100; RESP 18; TEMP 37.2; O2SAT 100; BMI 31.7
--- NOTE | 2022-07-11 17:39 | ED_ITS ---
HPI - General Adult General Chief complaint: Nausea/Vomiting/Diarrhea <TRACY Crump - Last Filed: 07/11/22 17:43> Stated complaint: vomiting, cant keep anything down <TRACY Crump - Last Filed: 07/11/22 17:43> Time Seen by Provider: 07/11/22 21:25 <TRACY Crump - Last Filed: 07/11/22 17:43> Source: patient <Radha Candelario MD - Last Filed: 07/12/22 00:03> Mode of arrival: ambulatory <Radha Candelario MD - Last Filed: 07/12/22 00:03> History of Present Illness HPI narrative: 37-year-old female who reports that she has continued to smoke marijuana and developed multiple episodes of nausea vomiting but otherwise denies any fever or chills. She does describe subsequent development of epigastric dis comfort. She denies any urinary pain/burning/frequency and denies any history of renal colic. She otherwise denies any other abdominal discomfort, shortness of breath, chest pain/palpitations. <Radha Candelario MD - Last Filed: 07/12/22 00:03> Related Data Home medications: Previous Rx's Medication Instructions Recorded PNV 153-FA 400 mcg-om3 35 mg-dha 1 tab PO DAILY #30 tabs 03/04/21 25 mg-epa 5 mg-fish oil chew tablet ( Gummies) ondansetron 4 mg disintegrating 4 mg PO Q8H PRN nausea and 03/05/21 tablet vomiting #20 tabs promethazine 12.5 mg tablet 12.5 mg PO Q6H PRN nausea and 03/09/21 vomiting #20 tabs blood-glucose meter (FreeStyle #1 ea 03/10/21 Richey Lite kit) doxylamine succinate 25 mg tablet 25 mg PO BEDTIME sleep 30 days #30 03/11/21 (Unisom (doxylamine)) tabs pyridoxine (vitamin B6) 25 mg 25 mg PO TID 30 days #90 tabs 03/11/21 tablet aspirin 81 mg chewable tablet 162 mg PO DAILY #90 tabs 03/23/21 (Children's Aspirin) blood sugar diagnostic (FreeStyle #100 ea 03/30/21 Lite Strips) lancets 28 gauge (FreeStyle #100 ea 03/30/21 Lancets) metformin 500 mg tablet 1,000 mg PO BEDTIME #60 tabs 03/30/21 labetalol 100 mg tablet 100 mg PO BID@0900,1700 #60 tabs 04/13/21 nitrofurantoin 100 mg PO BID 5 days #10 caps 04/13/21 monohydrate/macrocrystals 100 mg capsule (Macrobid) ondansetron HCl 4 mg tablet 4 mg PO Q8H PRN nausea and 07/12/22 vomiting 4 days #14 tabs <TRACY Crump - Last Filed: 07/11/22 17:43> Allergies/adverse reactions: Allergies Allergy/AdvReac Type Severity Reaction Status Date / Time oxycodone [From PERCOCET] Allergy Unknown RASH Verified 07/11/22 17:38 <TRACY Crump - Last Filed: 07/11/22 17:43> Review of Systems Review of Systems: Pertinent positives and negatives as stated in HPI <Radha Candelario MD - Last Filed: 07/12/22 00:03> PMFSH Past Medical History Source: nursing notes reviewed <Radha Candelario MD - Last Filed: 07/12/22 00:03> Medical History: Medical History Cervical incompetence COVID-19 Diabetes Hypertension <TRACY Crump - Last Filed: 07/11/22 17:43> Surgical History: Surgical History Hx of appendectomy <TRACY Crump - Last Filed: 07/11/22 17:43> Social History Social History: Social History Household Members: Significant Other Housing: Apartment Do you presently have visiting nurse or other home services: No Alcohol intake: never Patient Tobacco Use Status: Never used Tobacco Substance Use Type: Marijuana Advance Directives: No Advance Directives Information Provided: No service: No Current occupational status: unemployed <TRACY Crump - Last Filed: 07/11/22 17:43> Physical Exam ED Vital Signs: Vital Signs - 24 hr 07/11/22 17:38 07/11/22 22:59 Temperature 98.9 F Pulse Rate 100 71 Respiratory Rate 18 18 Blood Pressure 137/106 H 165/93 H Pulse Oximetry 100 100 Oxygen Delivery Method Room Air Room Air BMI result Body Mass Index 31.7 <TRACY Crump - Last Filed: 07/11/22 17:43> Vital Signs - 24 hr 07/11/22 17:38 07/11/22 22:59 Temperature 98.9 F Pulse Rate 100 71 Respiratory Rate 18 18 Blood Pressure 137/106 H 165/93 H Pulse Oximetry 100 100 Oxygen Delivery Method Room Air Room Air BMI result Body Mass Index 31.7 VITAL SIGNS: Reviewed. GENERAL: Well developed, well nourished, in no acute distress. HEAD: Normocephalic/atraumatic EYES: PERRLA, EOMI EARS: Ext canals without abnormality NOSE: Nares patent bilateral OROPHARYNX: no oral lesions noted, posterior pharynx clear, moist mucosa NECK: Supple, no adenopathy LUNGS: Normal breath sounds. No adventitious sounds or accessory muscle use. SpO2<100> CARDIOVASCULAR: Regular rate and rhythm without noted murmurs ABDOMEN: Soft, minimal discomfort on palpation over epigastrium, non-distended with bowel sounds. MUSCULOSKELETAL: No tenderness, deformities, or effusions noted on gross inspection. EXTREMITIES: No cyanosis, clubbing or edema. SKIN: Inspection of the skin reveals no rashes NEUROLOGIC: Alert and oriented x 4. Strength and sensation to light touch were grossly intact x 4. <Radha Candelario MD - Last Filed: 07/12/22 00:03> Course Course Course Narrative: This is an RME: Additional HPI, ROS, PE not included below will be deferred to primary provider. 37-year-old female history of cyclic vomiting, diabetes, hypertension presenting to the emergency department for complaints of nausea, vomiting, abdominal cramping since Sunday. Patient tells me she has not been able to eat or drink since Sunday, family members at home with similar symptoms. Reports fatigue malaise with associated weakness. Patient denies fevers, chills, recent travel, recent antibiotic use, changes in dietary habits. Patient is a current daily marijuana smoker. Patient has hx of appendectomy Physical exam benign Plan at this time urine, labs. <TRACY Crump - Last Filed: 07/11/22 17:43> Medications Administered Discontinued Medications Generic Name Dose Route Start Last Admin Trade Name Freq PRN Reason Stop Dose Admin Diphenhydramine HCl 25 mg 07/11/22 22:03 07/11/22 22:11 Diphenhydramine Hcl 50 Mg/Ml Vial IVPUSH 07/11/22 22:04 25 mg ONCE ONE Administration Sodium Chloride 1,000 mls @ 999 mls/hr 07/11/22 17:45 07/11/22 22:06 Ns IV 07/11/22 18:45 Infused .Q1H1M DERRICK Infusion Metoclopramide HCl 10 mg 07/11/22 22:03 07/11/22 22:11 Metoclopramide Hcl 10 Mg/2 Ml Vial IVPUSH 07/11/22 22:04 10 mg ONCE ONE Administration Ondansetron HCl 4 mg 07/11/22 20:58 07/11/22 21:03 Ondansetron Hcl 4 Mg/2 Ml Vial IVPUSH 07/11/22 20:59 4 mg ONCE ONE Administration <TRACY Crump - Last Filed: 07/11/22 17:43> Medications Administered Discontinued Medications Generic Name Dose Route Start Last Admin Trade Name Freq PRN Reason Stop Dose Admin Diphenhydramine HCl 25 mg 07/11/22 22:03 07/11/22 22:11 Diphenhydramine Hcl 50 Mg/Ml Vial IVPUSH 07/11/22 22:04 25 mg ONCE ONE Administration Sodium Chloride 1,000 mls @ 999 mls/hr 07/11/22 17:45 07/11/22 22:06 Ns IV 07/11/22 18:45 Infused .Q1H1M DERRICK Infusion Metoclopramide HCl 10 mg 07/11/22 22:03 07/11/22 22:11 Metoclopramide Hcl 10 Mg/2 Ml Vial IVPUSH 07/11/22 22:04 10 mg ONCE ONE Administration Ondansetron HCl 4 mg 07/11/22 20:58 07/11/22 21:03 Ondansetron Hcl 4 Mg/2 Ml Vial IVPUSH 07/11/22 20:59 4 mg ONCE ONE Administration <Radha Candelario MD - Last Filed: 07/12/22 00:03> Medical Decision Making Medical Decision Making MDM Narrative: 37-year-old female with history and clinical presentation after review of all investigations my interpretation is this patient likely has cyclical vomiting. I did note the significant leukocyte esterase in her urinalysis there are a number of squamous epithelium and 1+ bacteria without nitrate positive and patient is asymptomatic. At this time will not treat as I do not think that this is a urinary tract infection or cystitis. Will continue to administer m edications for control of the nausea and vomiting as well as rehydrate the patient. 2357: Patient is resting comfortably, she has been rehydrated and received multiple medications for nausea control. She was counseled on decreasing the amount of cannabis that she uses in an effort to avoid exacerbating nausea and vomiting. Patient is also discharged on antiemetics. She is otherwise hemodynamically stable. <Radha Candelario MD - Last Filed: 07/12/22 00:03> Differential Diagnosis Please see the discussion above <Radha Candelario MD - Last Filed: 07/12/22 00:03> Lab Data Please see the discussion above <Radha Candelario MD - Last Filed: 07/12/22 00:03> Result Diagrams: 07/11/22 18:13 07/11/22 18:13 <TRACY Crump - Last Filed: 07/11/22 17:43> Labs: Lab Results 07/11/22 07/11/22 07/11/22 Range/Units 18:10 18:13 18:13 WBC 5.9 (4.8-10.8) X10*3/uL RBC 5.10 (4.20-5.50) X10*6/uL Hgb 14.8 (12.0-16.0) g/dl Hct 45.5 D (37.0-47.0) % MCV 89.2 (80.0-98.0) fL MCH 29.0 (27.0-33.0) pg MCHC 32.5 (31.0-35.0) g/dl RDW 14.6 (11.0-16.0) % Plt Count 749 H D (160-400) X10*3/uL MPV 8.2 L (9.4-12.3) fL Immature Gran % (Auto) 0.3 (0.0-0.4) % Neut % (Auto) 73.1 H (45-73) % Lymph % (Auto) 18.1 L (20-40) % [place] % (Auto) 5.7 (2-11) % Eos % (Auto) 2.0 (0-4) % Baso % (Auto) 0.8 (0-2) % Lymph # (Auto) 1.1 L (1.2-4.9) X10*3/uL [place] # (Auto) 0.3 (0.1-1.2) X10*3/uL Eos # (Auto) 0.1 (0.0-0.4) X10*3/uL Baso # (Auto) 0.1 (0.0-0.2) X10*3/uL Abs Immat Gran (auto) 0.02 (0.00-0.03) X10*3/uL Absolute Neuts (auto) 4.3 (2.0-8.3) x10*3/uL Absolute Nucleated RBC 0.000 (0.0-0.012) X10*3/uL Nucleated RBC % (auto) 0.0 (0.0-0.2) /100WBC Sodium 141 (135-145) mmol/L Potassium 4.3 D (3.3-5.1) mmol/L Chloride 102 (96-108) mmol/L Carbon Dioxide 28 (22-29) mmol/L Anion Gap 15 (12-20) BUN 10 (9-16) mg/dL Creatinine 1.13 (0.5-1.4) mg/dL Estim Creat Clear Calc 64.9 Estimated GFR 55 Random Glucose 133 H (60-115) mg/dL Calcium 10.5 H D (8.4-10.2) mg/dL Magnesium 1.9 (1.6-2.6) mg/dL Total Bilirubin 1.0 (0.0-1.0) mg/dL AST 43 H (5-31) U/L ALT 45 H (0-31) U/L Alkaline Phosphatase 71 (39-117) U/L Total Protein 9.0 H (6.5-8.0) g/dL Albumin 4.6 (3.5-5.0) g/dL Lipase 20 (8-78) U/L Beta HCG, Quant mIU/mL Urine Color Urine Appearance Urine pH (5.0-9.0) Ur Specific [place] (1.005-1.025) Urine Protein (Neg-Trace) mg/dL Urine Glucose (UA) (Negative) mg/dL Urine Ketones (Negative) mg/dL Urine Blood (Negative) Urine Nitrite (Negative) Ur Leukocyte Esterase (Negative) Urine RBC (0-2) /HPF Urine WBC (0-5) /HPF Ur Squamous Epith Cells (0-2) /HPF Urine Bacteria (None Seen) Hyaline Casts (0-2) /LPF Urine Opiates Screen (Not Detect) Urine Fentanyl Screen (Not Detect) Ur Barbiturates Screen (Not Detect) Ur Phencyclidine Scrn (Not Detect) Ur Amphetamines Screen (Not Detect) U Benzodiazepines Scrn (Not Detect) Urine Cocaine Screen (Not Detect) U Marijuana (THC) Screen (Not Detect) COVID-19 (TEOFILO) Negative (Negative) COVID-19 Clin Com See Note 07/11/22 07/11/22 07/11/22 Range/Units 18:13 20:52 20:52 WBC (4.8-10.8) X10*3/uL RBC (4.20-5.50) X10*6/uL Hgb (12.0-16.0) g/dl Hct (37.0-47.0) % MCV (80.0-98.0) fL MCH (27.0-33.0) pg MCHC (31.0-35.0) g/dl RDW (11.0-16.0) % Plt Count (160-400) X10*3/uL MPV (9.4-12.3) fL Immature Gran % (Auto) (0.0-0.4) % Neut % (Auto) (45-73) % Lymph % (Auto) (20-40) % [place] % (Auto) (2-11) % Eos % (Auto) (0-4) % Baso % (Auto) (0-2) % Lymph # (Auto) (1.2-4.9) X10*3/uL [place] # (Auto) (0.1-1.2) X10*3/uL Eos # (Auto) (0.0-0.4) X10*3/uL Baso # (Auto) (0.0-0.2) X10*3/uL Abs Immat Gran (auto) (0.00-0.03) X10*3/uL Absolute Neuts (auto) (2.0-8.3) x10*3/uL Absolute Nucleated RBC (0.0-0.012) X10*3/uL Nucleated RBC % (auto) (0.0-0.2) /100WBC Sodium (135-145) mmol/L Potassium (3.3-5.1) mmol/L Chloride (96-108) mmol/L Carbon Dioxide (22-29) mmol/L Anion Gap (12-20) BUN (9-16) mg/dL Creatinine (0.5-1.4) mg/dL Estim Creat Clear Calc Estimated GFR Random Glucose (60-115) mg/dL Calcium (8.4-10.2) mg/dL Magnesium (1.6-2.6) mg/dL Total Bilirubin (0.0-1.0) mg/dL AST (5-31) U/L ALT (0-31) U/L Alkaline Phosphatase (39-117) U/L Total Protein (6.5-8.0) g/dL Albumin (3.5-5.0) g/dL Lipase (8-78) U/L Beta HCG, Quant < 2 mIU/mL Urine Color Dark Yellow Urine Appearance Turbid Urine pH 5.5 (5.0-9.0) Ur Specific [place] >= 1.030 H (1.005-1.025) Urine Protein 100 (2+) H (Neg-Trace) mg/dL Urine Glucose (UA) Negative (Negative) mg/dL Urine Ketones 15 (Negative) mg/dL Urine Blood Negative (Negative) Urine Nitrite Negative (Negative) Ur Leukocyte Esterase Moderate (2+) H (Negative) Urine RBC 3-5 H (0-2) /HPF Urine WBC >50 H (0-5) /HPF Ur Squamous Epith Cells 11-20 (0-2) /HPF Urine Bacteria 1+ (None Seen) Hyaline Casts 6-10 (0-2) /LPF Urine Opiates Screen Not Detected (Not Detect) Urine Fentanyl Screen Not Detected (Not Detect) Ur Barbiturates Screen Not Detected (Not Detect) Ur Phencyclidine Scrn Not Detected (Not Detect) Ur Amphetamines Screen Not Detected (Not Detect) U Benzodiazepines Scrn Not Detected (Not Detect) Urine Cocaine Screen Not Detected (Not Detect) U Marijuana (THC) Screen POSITIVE H (Not Detect) COVID-19 (TEOFILO) (Negative) COVID-19 Clin Com <TRACY Crump - Last Filed: 07/11/22 17:43> Lab Results 07/11/22 07/11/22 07/11/22 Range/Units 18:10 18:13 18:13 WBC 5.9 (4.8-10.8) X10*3/uL RBC 5.10 (4.20-5.50) X10*6/uL Hgb 14.8 (12.0-16.0) g/dl Hct 45.5 D (37.0-47.0) % MCV 89.2 (80.0-98.0) fL MCH 29.0 (27.0-33.0) pg MCHC 32.5 (31.0-35.0) g/dl RDW 14.6 (11.0-16.0) % Plt Count 749 H D (160-400) X10*3/uL MPV 8.2 L (9.4-12.3) fL Immature Gran % (Auto) 0.3 (0.0-0.4) % Neut % (Auto) 73.1 H (45-73) % Lymph % (Auto) 18.1 L (20-40) % [place] % (Auto) 5.7 (2-11) % Eos % (Auto) 2.0 (0-4) % Baso % (Auto) 0.8 (0-2) % Lymph # (Auto) 1.1 L (1.2-4.9) X10*3/uL [place] # (Auto) 0.3 (0.1-1.2) X10*3/uL Eos # (Auto) 0.1 (0.0-0.4) X10*3/uL Baso # (Auto) 0.1 (0.0-0.2) X10*3/uL Abs Immat Gran (auto) 0.02 (0.00-0.03) X10*3/uL Absolute Neuts (auto) 4.3 (2.0-8.3) x10*3/uL Absolute Nucleated RBC 0.000 (0.0-0.012) X10*3/uL Nucleated RBC % (auto) 0.0 (0.0-0.2) /100WBC Sodium 141 (135-145) mmol/L Potassium 4.3 D (3.3-5.1) mmol/L Chloride 102 (96-108) mmol/L Carbon Dioxide 28 (22-29) mmol/L Anion Gap 15 (12-20) BUN 10 (9-16) mg/dL Creatinine 1.13 (0.5-1.4) mg/dL Estim Creat Clear Calc 64.9 Estimated GFR 55 Random Glucose 133 H (60-115) mg/dL Calcium 10.5 H D (8.4-10.2) mg/dL Magnesium 1.9 (1.6-2.6) mg/dL Total Bilirubin 1.0 (0.0-1.0) mg/dL AST 43 H (5-31) U/L ALT 45 H (0-31) U/L Alkaline Phosphatase 71 (39-117) U/L Total Protein 9.0 H (6.5-8.0) g/dL Albumin 4.6 (3.5-5.0) g/dL Lipase 20 (8-78) U/L Beta HCG, Quant mIU/mL Urine Color Urine Appearance Urine pH (5.0-9.0) Ur Specific [place] (1.005-1.025) Urine Protein (Neg-Trace) mg/dL Urine Glucose (UA) (Negative) mg/dL Urine Ketones (Negative) mg/dL Urine Blood (Negative) Urine Nitrite (Negative) Ur Leukocyte Esterase (Negative) Urine RBC (0-2) /HPF Urine WBC (0-5) /HPF Ur Squamous Epith Cells (0-2) /HPF Urine Bacteria (None Seen) Hyaline Casts (0-2) /LPF Urine Opiates Screen (Not Detect) Urine Fentanyl Screen (Not Detect) Ur Barbiturates Screen (Not Detect) Ur Phencyclidine Scrn (Not Detect) Ur Amphetamines Screen (Not Detect) U Benzodiazepines Scrn (Not Detect) Urine Cocaine Screen (Not Detect) U Marijuana (THC) Screen (Not Detect) COVID-19 (TEOFILO) Negative (Negative) COVID-19 Clin Com See Note 07/11/22 07/11/22 07/11/22 Range/Units 18:13 20:52 20:52 WBC (4.8-10.8) X10*3/uL RBC (4.20-5.50) X10*6/uL Hgb (12.0-16.0) g/dl Hct (37.0-47.0) % MCV (80.0-98.0) fL MCH (27.0-33.0) pg MCHC (31.0-35.0) g/dl RDW (11.0-16.0) % Plt Count (160-400) X10*3/uL MPV (9.4-12.3) fL Immature Gran % (Auto) (0.0-0.4) % Neut % (Auto) (45-73) % Lymph % (Auto) (20-40) % [place] % (Auto) (2-11) % Eos % (Auto) (0-4) % Baso % (Auto) (0-2) % Lymph # (Auto) (1.2-4.9) X10*3/uL [place] # (Auto) (0.1-1.2) X10*3/uL Eos # (Auto) (0.0-0.4) X10*3/uL Baso # (Auto) (0.0-0.2) X10*3/uL Abs Immat Gran (auto) (0.00-0.03) X10*3/uL Absolute Neuts (auto) (2.0-8.3) x10*3/uL Absolute Nucleated RBC (0.0-0.012) X10*3/uL Nucleated RBC % (auto) (0.0-0.2) /100WBC Sodium (135-145) mmol/L Potassium (3.3-5.1) mmol/L Chloride (96-108) mmol/L Carbon Dioxide (22-29) mmol/L Anion Gap (12-20) BUN (9-16) mg/dL Creatinine (0.5-1.4) mg/dL Estim Creat Clear Calc Estimated GFR Random Glucose (60-115) mg/dL Calcium (8.4-10.2) mg/dL Magnesium (1.6-2.6) mg/dL Total Bilirubin (0.0-1.0) mg/dL AST (5-31) U/L ALT (0-31) U/L Alkaline Phosphatase (39-117) U/L Total Protein (6.5-8.0) g/dL Albumin (3.5-5.0) g/dL Lipase (8-78) U/L Beta HCG, Quant < 2 mIU/mL Urine Color Dark Yellow Urine Appearance Turbid Urine pH 5.5 (5.0-9.0) Ur Specific [place] >= 1.030 H (1.005-1.025) Urine Protein 100 (2+) H (Neg-Trace) mg/dL Urine Glucose (UA) Negative (Negative) mg/dL Urine Ketones 15 (Negative) mg/dL Urine Blood Negative (Negative) Urine Nitrite Negative (Negative) Ur Leukocyte Esterase Moderate (2+) H (Negative) Urine RBC 3-5 H (0-2) /HPF Urine WBC >50 H (0-5) /HPF Ur Squamous Epith Cells 11-20 (0-2) /HPF Urine Bacteria 1+ (None Seen) Hyaline Casts 6-10 (0-2) /LPF Urine Opiates Screen Not Detected (Not Detect) Urine Fentanyl Screen Not Detected (Not Detect) Ur Barbiturates Screen Not Detected (Not Detect) Ur Phencyclidine Scrn Not Detected (Not Detect) Ur Amphetamines Screen Not Detected (Not Detect) U Benzodiazepines Scrn Not Detected (Not Detect) Urine Cocaine Screen Not Detected (Not Detect) U Marijuana (THC) Screen POSITIVE H (Not Detect) COVID-19 (TEOFILO) (Negative) COVID-19 Clin Com <Radha Candelario MD - Last Filed: 07/12/22 00:03> External Record Review External record reviewed: Outpatient record and Prior outpatient labs <Radha Candelario MD - Last Filed: 07/12/22 00:03> Discharge Plan Discharge Clinical Impression: Cyclical vomiting, Cannabis use disorder <TRACY Crump - Last Filed: 07/11/22 17:43> Patient Disposition: Home, Self-Care <TRACY Crump - Last Filed: 07/11/22 17:43> Instructions: Cannabis Abuse (ED), Cyclic Vomiting Syndrome (ED) <TRACY Crump - Last Filed: 07/11/22 17:43> Additional Instructions: 1. Get plenty of rest and use the anti-nausea medications as provided. Recommend that you decrease the amount of cannabis that you use in an effort to avoid further nausea and vomiting. 2. Please follow-up with your primary care provider to follow-up on your urine culture results. Return to the ER for any worsening symptoms. <TRACY Crump - Last Filed: 07/11/22 17:43> Prescriptions: New ondansetron HCl 4 mg tablet 4 mg PO Q8H PRN (Reason: nausea and vomiting) 4 Days Qty: 14 0RF No Action (DME) blood-glucose meter [FreeStyle Richey Lite] Kit See Rx Instructions .MEDSUPPLY Qty: 1 0RF Rx Instructions: QID Unisom (doxylamine) 25 mg tablet 25 mg PO BEDTIME 30 Days Qty: 30 3RF pyridoxine (vitamin B6) 25 mg tablet 25 mg PO TID 30 Days Qty: 90 3RF ondansetron 4 mg tablet,disintegrating 4 mg PO Q8H PRN (Reason: nausea and vomiting) Qty: 20 0RF promethazine 12.5 mg tablet 12.5 mg PO Q6H PRN (Reason: nausea and vomiting) Qty: 20 0RF Rx Instructions: 3 doses during day; last dose no later than 4 hr before bedtime aspirin [Children's Aspirin] 81 mg tablet,chewable 162 mg PO DAILY Qty: 90 2RF (DME) FreeStyle Lite Strips Strip See Rx Instructions .MEDSUPPLY Qty: 100 8RF Rx Instructions: QID (DME) lancets [FreeStyle Lancets] 28 gauge misc See Rx Instructions .MEDSUPPLY Qty: 100 8RF Rx Instructions: qid metformin 500 mg tablet 1,000 mg PO BEDTIME Qty: 60 0RF labetalol 100 mg tablet 100 mg PO BID@0900,1700 Qty: 60 0RF nitrofurantoin monohyd/m-cryst [Macrobid] 100 mg capsule 100 mg PO BID 5 Days Qty: 10 0RF Gummies 400 mcg-35 mg- 25 mg-5 mg tablet,chewable 1 tab PO DAILY Qty: 30 11RF <TRACY Crump - Last Filed: 07/11/22 17:43> Referrals: Valerie Patel MD [Primary Care Provider] - <TRACY Crump - Last Filed: 07/11/22 17:43>
[2022-07-11 18:18] LABS: MANUAL DIFF FLAG NO
[2022-07-11 18:20] LABS: Basophils Absolute Auto 0.1 X10*3/uL (0.0-0.2); Basophils Percent Auto 0.8 % (0-2); Eosinophils Absolute Auto 0.1 X10*3/uL (0.0-0.4); Hematocrit 45.5 % (37.0-47.0); Hemoglobin 14.8 g/dl (12.0-16.0); Imm Gran Abs Auto 0.02 X10*3/uL (0.00-0.03); Imm Gran Pct Auto 0.3 % (0.0-0.4); Lymphocytes Absolute Auto 1.1 X10*3/uL (1.2-4.9); Lymphocytes Percent Auto 18.1 % (20-40); Mean Corpuscular HGB Conc 32.5 g/dl (31.0-35.0); Mean Corpuscular Volume 89.2 fL (80.0-98.0); Mean Platelet Volume 8.2 fL (9.4-12.3); Monocytes Absolute Auto 0.3 X10*3/uL (0.1-1.2); Monocytes Percent Auto 5.7 % (2-11); Neutrophils Absolute Auto 4.3 x10*3/uL (2.0-8.3); Neutrophils Percent Auto 73.1 % (45-73); Platelet Count 749 X10*3/uL (160-400); Red Cell Distribution Width 14.6 % (11.0-16.0); White Blood Count 5.9 X10*3/uL (4.8-10.8)
[2022-07-11 18:32] LABS: COVID-19 Test Negative (Negative); IDNOW Serial# BCCEAD1C
[2022-07-11 18:38] LABS: Alanine Aminotransferase 45 U/L (0-31); Albumin Level 4.6 g/dL (3.5-5.0); Alkaline Phosphatase 71 U/L (39-117); Anion Gap 15 (12-20); Aspartate Amino Transferase 43 U/L (5-31); Blood Urea Nitrogen 10 mg/dL (9-16); Calcium 10.5 mg/dL (8.4-10.2); Carbon Dioxide 28 mmol/L (22-29); Chloride 102 mmol/L (96-108); Creatinine Clr Calc Pharmacy 64.9; Estimated Glomerular Filt Rate 55; Glucose Random 133 mg/dL (60-115); Lipase 20 U/L (8-78); Magnesium 1.9 mg/dL (1.6-2.6); Potassium 4.3 mmol/L (3.3-5.1); Sodium 141 mmol/L (135-145)
[2022-07-11 18:47] LABS: HCG Quantitative < 2 mIU/mL
[2022-07-11] MEDS: 0.9 % Sodium Chloride 1,000 ML 999 ML IV (20:56)
[2022-07-11 21:00] LABS: Appearance Urine Turbid; Color Urine Dark Yellow; Glucose Urine UA Negative (Negative); Leukocyte Esterase Urine Moderate (2+) (Negative); Nitrite Urine Negative (Negative); PH 5.5 (5.0-9.0); Specific Gravity - Urine >= 1.030 (1.005-1.025); UMIC TRIGGER UACC YES; Urine Blood Negative (Negative); Urine Ketones 15 mg/dL (Negative); Urine Protein 100 (2+) mg/dL (Neg-Trace)
[2022-07-11] MEDS: ondansetron HCL 4 MG/2 ML VIAL IVPUSH (21:03)
--- NOTE | 2022-07-11 21:05 | PC.NURSE ---
20G IV placed left AC, 1L NS running, medicated per provider order, pt continues to dry heave/vomit bile. pt pending ED provider.
[2022-07-11 21:08] LABS: Bacteria Urine 1+ (None Seen); UACC Culture Trigger YES; WBC Urine >50 /HPF (0-5)
[2022-07-11 21:09] LABS: Amphetamine Screen Urine Not Detected (Not Detect); Barbiturates, Urine Not Detected (Not Detect); Benzodiazepines Screen Urine Not Detected (Not Detect); Cannabinoid Screen Urine POSITIVE (Not Detect); Cocaine Screen Urine Not Detected (Not Detect); Fentanyl, urine Not Detected (Not Detect); Opiate Screen Urine Not Detected (Not Detect); Phencyclidine Screen Urine Not Detected (Not Detect)
--- NOTE | 2022-07-11 21:33 | PC.NURSE ---
pt resting quietly, eyes closed, RR even and unlabored.
[2022-07-11] MEDS: diphenhydrAMINE HCL 50 MG/ML VIAL 25 MG IVPUSH (22:11)
[2022-07-11] MEDS: Metoclopramide HCl 10 MG/2 ML VIAL IVPUSH (22:11)
[2022-07-11 22:59] VITALS: BP 165/93; PULSE 71; RESP 18; O2SAT 100
[2022-07-12] MEDS: Prochlorperazine Edisylate 10 MG/2 ML VIAL IVPUSH (00:03)
--- NOTE | 2022-07-12 00:08 | PC.NURSE ---
Medicated per Mar for nausea.
--- NOTE | 2022-07-12 00:11 | PC.NURSE ---
took over care at 11:15pm from Marisela PLASENCIA, no sob or chest pain, medicated per May, removed Iv, Reviewed discharge instructions with pt, pt verbalized understanding. no sign of distress at discharge.
== END 2022-07-12 00:19 | disposition home or self-care (01) ==
PROVIDERS: Physician Assistant; Emergency Provider Student in an Organized Health Care Education/Training Program; PCP Internal Medicine
DX: R11.15 Cyclical vomiting syndrome unrelated to migraine (principal); F12.90 Cannabis use, unspecified, uncomplicated; E11.9 Type 2 diabetes mellitus without complications; I10 Essential (primary) hypertension; Z20.822 Contact with and (suspected) exposure to COVID-19
CPT/HCPCS: 36415; 80053; 80307; 81001; 81003; 83690; 83735; 84702; 85025; 87086; 87635; 96361; 96374; 96375; 99284; J1200; J2405; J2765